=== PATIENT | female | born 2000 | race Caucasian/White ===

== ENCOUNTER 2021-11-11 11:48 | Outpatient (REF) | payer MEDICAID, SELFPAY ==
--- NOTE | 2021-11-11 16:11 | MHC.AU.AEV ---
Adult Audiological Evaluation Date of Visit: 11/11/21 Reason for Appointment: Audiological evaluation due to concern for decreased hearing. Nahomy notes that she is often asking for repetition, her mom gets frustrated that she never hears her, and she has to turn the volume up on the TV. She notes that she does have some ringing, which she notices almost daily for a few minutes at a time, and more often when she is in quiet environments. She notes that she feels she has an attention deficit as well and even if she is trying to pay attention and focus she doesn't always follow what is being said. She noted difficulties understanding speech in background noise . Does patient feel they have a hearing loss?: Yes If Yes, Which Ear?: Both Ears When Was Hearing Difficulty First Noticed?: a long time, but getting worse over the past year Has hearing been tested previously?: No Hearing Handicap Inventory Does a hearing problem cause you to feel embarrassed when meeting new people?: Yes Does a hearing problem cause you to feel frustrated when talking to members of your family?: Yes Do you have difficulty when someone speaks in a whisper?: Yes Do you feel handicapped by a hearing problem?: Yes Does a hearing problem cause you difficulty when visiting friends, relatives, or neighbors?: Yes Does a hearing problem cause you to attend sabianism service services less often than you would like?: Yes Does a hearing problem cause you to have arguments with family members?: Yes Does a hearing problem cause you difficulty when listening to TV or radio?: Yes Do you feel that any difficult with your hearing limits or hampers your personal or social life?: Yes Does a hearing problem cause you difficulty when in a restaurants with relatives or friends?: Yes HHIE SCORE: 40 Based on HHIE score, patient has: Severe perceived hearing handicap Ear History: Ear Infections in Childhood: Patient reports she had a bad infection in the left at age 5 History of Ear Wax Buildup: Both Ears Bothersome Tinnitus/Ringing/Noises in Ears: Right Ear Medical History: Medical History: Dizziness or Unsteadiness, Headache, Migraines Allergies: NKA Medication List: Lexapro, Naproxen (PRN during menstrual cycle), Vitamin D Otoscopy: Right Ear: Unremarkable Left Ear: Unremarkable Tympanometry: Tympanometry performed due to: To assess integrity of the middle ear system Right Ear: Normal Middle Ear System (Type A) Left Ear: Normal Middle Ear System (Type A) Otoacoustic Emissions Frequency Range Used: 1.6-8 kHz Right Ear Results: Present Emissions Analysis: Present emissions suggest normal cochlear function. Rules out peripheral hearing loss greater than a mild degree. Left Ear Results: Present Emissions Analysis: Present emissions suggest normal cochlear function. Rules out peripheral hearing loss greater than a mild degree. Hearing Evaluation: Transducer(s) Used: Insert Earphones, Bone Conduction Method: Conventional Audiometry Stimuli Used: Pure Tones Note: Initial responses were inconsistent and there was poor OCCUPATIONAL THERAPY ASSIST/SRT agreement. Final thresholds obtained using ascending presentation and responses fell within the normal range. Right Ear: Description of Hearing: Hearing in the normal range from 250-8000 Hz. Left Ear: Description of Hearing: Hearing in the normal range from 250-8000 Hz. Speech Recognition Threshold (SRT): Method Used: Monitored Live Voice Stimuli Used: Spondee Words Right Ear: 10 dBHL Left Ear: 5 dBHL Word Discrimination: Method: Recorded Lists Word Lists Used:: NU-6 Right Ear: 100% at 50 dBHL Left Ear: 100% at 45 dBHL QuickSIN: 7 dB SNR loss when presented at 55 dBHL binaurally, indicating mild [id number] understanding deficits. Interpretation of Results: Today's evaluation indicates normal peripheral hearing sensitivity, normal cochlear function, and normal middle-ear function. [id number] performance suggests a possible auditory processing deficit, which can also be impacted by attention deficits. Recommendations: No further audiological action is indicated at this time. Discussed tips and strategies for improved communication. Advised to return if changes are noted or new concerns arise. Diagnosis: Primary Diagnosis: H93.293 Abnormal Auditory Perception Services Performed: Pure Tone- Air (CPT 96833), Speech Audiometry Threshold, with Speech Recognition (CPT 87416), Diagnostic Otoacoustic Emissions (CPT 66574, 26+TC), Tympanometry (CPT 61530), Unlisted Otorhinolaryngological Service or Procedure (CPT 87381) Signature: Provider: Adithya Hernandez, CCC-A
== END 2021-11-11 11:49 | disposition home or self-care (01) ==
LOC: HO.SH 11:48
PROVIDERS: Visit Provider Nurse Practitioner Family
DX: Z01.118 Encounter for examination of ears and hearing with other abnormal findings (principal); H93.293 Other abnormal auditory perceptions, bilateral
CPT/HCPCS: 92552; 92556; 92567; 92588; 92700

== ENCOUNTER 2022-04-21 17:00 | Emergency (ER) | payer OTHER, SELFPAY ==
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
[2022-04-21 18:22] VITALS: BP 139/88; PULSE 76; RESP 18; TEMP 36.6; O2SAT 99; BMI 51.5
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
[2022-04-21] MEDS: Acetaminophen 325 MG TABLET 975 MG PO (20:34)
[2022-04-21] MEDS: Ibuprofen 600 MG TABLET PO (20:34)
== END 2022-04-21 20:50 | disposition home or self-care (01) ==
PROVIDERS: Emergency Provider Emergency Medicine Emergency Medical Services
DX: S43.401A Unspecified sprain of right shoulder joint, initial encounter (principal); V43.52XA Car driver injured in collision with other type car in traffic accident, initial encounter; Y93.89 Activity, other specified; Y92.414 Local residential or business street as the place of occurrence of the external cause; Y99.8 Other external cause status
CPT/HCPCS: 73030; 73060; 73090; 99283

== ENCOUNTER → 2022-05-08 13:06 | Outpatient (RCR) | payer OTHER, SELFPAY ==
[2020-06-09 11:17] LABS: COVID-19 Test Negative (Negative); IDNOW Serial# 55D5AD1C
[2020-06-16 11:13] LABS: COVID-19 Test Negative (Negative); IDNOW Serial# 55D5AD1C
[2020-06-23 11:11] LABS: COVID-19 Test Negative (Negative)
[2020-06-24 06:45] LABS: IDNOW Serial# 55D5AD1C
[2020-07-02 14:28] LABS: COVID-19 Test Negative (Negative); IDNOW Serial# 55D5AD1C
== END | disposition home or self-care (01) ==
LOC: HO.EMPCOV 06-16 10:48
PROVIDERS: Visit Provider Internal Medicine
DX: Z20.828 Contact with and (suspected) exposure to other viral communicable diseases (principal)
CPT/HCPCS: 87635; C9803

== ENCOUNTER 2022-12-13 21:22 | Emergency (ER) | payer MEDICAID, SELFPAY ==
--- NOTE | ~2022-12-13 | US_ITS ---
EXAMINATION: US ABDOMEN LIMITED CLINICAL INFORMATION: Right upper quadrant/epigastric pain. COMPARISON: None available. TECHNIQUE: Real-time imaging of the right upper quadrant abdominal viscera. FINDINGS: PANCREAS: The pancreas could not be evaluated as it was obscured by bowel gas. LIVER: The liver is normal in size. The liver contour is normal. Parenchymal echogenicity is normal. No focal hepatic lesion. There is no intrahepatic biliary duct dilatation seen. GALLBLADDER: The gallbladder is physiologically distended without evidence of stones, sludge, polyps, wall thickening or pericholecystic fluid. COMMON BILE DUCT: Normal in caliber measuring 0.3 cm in diameter. RIGHT KIDNEY: No hydronephrosis. No renal calculi or focal parenchymal lesions. The kidney measures 9.4 cm in maximum dimension. FREE FLUID: None. US/US abdomen limited IMPRESSION: No abnormality is seen. The pancreas could not be evaluated.
--- NOTE | ~2022-12-13 | US_ITS ---
EXAMINATION: US OBSTETRICAL ULTRASOUND CLINICAL INFORMATION: Abdominal pain COMPARISON: None available. LMP: 11/12/2022. Gestational age by maternal dates is 4 weeks 3 days. Estimated date of delivery by maternal dates is 08/19/2023. TECHNIQUE: Both transabdominal and endovaginal scanning was performed. FINDINGS: Uterus appears unremarkable. No gestational sac is seen. The endometrium is thickened at 2.1 cm. There may be trace fluid seen within the endometrium. The right ovary measures 3.5 x 2.4 x 2.3 cm and contains a 1.5 cm corpus luteal cyst. Left ovary measures 2.8 x 1.5 x 3.1 cm and appears normal. Small amount of free fluid is present in the cul-de-sac. US/US OB pelvic and transvaginal IMPRESSION: No intrauterine is identified at this time. Correlation with beta hCG levels is recommended, as nonvisualization of a gestational sac could be due to an early stage of . Alternatively, lack of an intrauterine gestational sac may also be seen with missed or ectopic , although no adnexal mass is seen to strongly suggest ectopic . Short-term sonographic follow-up and serial beta hCG levels are recommended to assess for development of an intrauterine gestational sac.
[2022-12-13 21:31] VITALS: BP 117/73; PULSE 90; RESP 16; TEMP 36.8; O2SAT 98; BMI 348.2
[2022-12-13 22:10] LABS: MANUAL DIFF FLAG NO
[2022-12-13 22:11] LABS: Basophils Percent Auto 0.2 % (0-2); Eosinophils Absolute Auto 0.1 X10*3/uL (0.0-0.4); Eosinophils Percent Auto 0.9 % (0-4); Hematocrit 37.8 % (37.0-47.0); Hemoglobin 12.2 g/dl (12.0-16.0); Imm Gran Abs Auto 0.04 X10*3/uL (0.00-0.03); Imm Gran Pct Auto 0.3 % (0.0-0.4); Lymphocytes Absolute Auto 2.2 X10*3/uL (1.2-4.9); Lymphocytes Percent Auto 17.4 % (20-40); Mean Corpuscular HGB Conc 32.3 g/dl (31.0-35.0); Mean Corpuscular Hemoglobin 25.3 pg (27.0-33.0); Mean Corpuscular Volume 78.4 fL (80.0-98.0); Mean Platelet Volume 10.7 fL (9.4-12.3); Monocytes Absolute Auto 0.8 X10*3/uL (0.1-1.2); Monocytes Percent Auto 6.5 % (2-11); Neutrophils Absolute Auto 9.5 x10*3/uL (2.0-8.3); Neutrophils Percent Auto 74.7 % (45-73); Platelet Count 316 X10*3/uL (160-400); Red Blood Count 4.82 X10*6/uL (4.20-5.50); Red Cell Distribution Width 15.1 % (11.0-16.0); White Blood Count 12.7 X10*3/uL (4.8-10.8)
[2022-12-13 22:12] LABS: Appearance Urine Clear; Color Urine Dark Yellow; Glucose Urine UA Negative (Negative); Leukocyte Esterase Urine Negative (Negative); Nitrite Urine Negative (Negative); PH 5.5 (5.0-9.0); Specific Gravity - Urine >= 1.030 (1.005-1.025); UMIC TRIGGER UACC YES; Urine Blood Negative (Negative); Urine Ketones Trace mg/dL (Negative); Urine Protein 30 (1+) mg/dL (Neg-Trace)
[2022-12-13 22:17] LABS: Bacteria Urine Trace (None Seen); RBC Urine 0-2 /HPF (0-2); WBC Urine 0-5 /HPF (0-5)
[2022-12-13 22:28] VITALS: BP 102/61; PULSE 78; RESP 18; TEMP 36.4; O2SAT 97
--- NOTE | 2022-12-13 22:28 | ED.ABDPAIN ---
HPI - Abdominal Pain General Chief Complaint: Abdominal Pain Stated Complaint: preg, sharp abd pain Time Seen by Provider: 12/13/22 21:43 Source: patient Mode of arrival: ambulatory History of Present Illness HPI narrative: 22-year-old female who presents with onset of right upper quadrant/epigastric, sharp pain since this morning and had 2 episodes of nausea and vomiting the last of which occurred at approximately 10:00 o'clock this morning, patient has been able tolerate liquids but otherwise has had a decrease in appetite. She denies any radiation of the discomfort, denies any pelvic pain or cramping, denies any dysuria or vaginal bleeding but states that her LMP was mid October and that she had to positive home test today. She denies any fevers or chills. Related Data Previous Rx's Medication Instructions Recorded pyridoxine (vitamin B6) 25 mg 25 mg PO TID #60 tabs 12/14/22 tablet Allergies Allergy/AdvReac Type Severity Reaction Status Date / Time No Known Allergies Allergy Verified 04/21/22 18:26 [No Known Allergies*] Review of Systems Review of Systems Pertinent positives and negatives as stated in HPI PMFSH Past Medical History Source: nursing notes reviewed Social History Social History Alcohol intake: current Alcohol intake frequency: holidays/special occasions only Smoked in Last 30 Days: No Use of substances other than those prescribed or required for medical reasons: Yes Substance Use Type: Marijuana Substance Use Frequency: Socially Advance Directives: No Advance Directives Information Provided: Yes Patient : Yes Physical Exam ED Vital Signs: Vital Signs - 24 hr 12/13/22 21:31 12/13/22 22:28 Temperature 98.3 F 97.5 F Pulse Rate 90 78 Respiratory Rate 16 18 Blood Pressure 117/73 102/61 Pulse Oximetry 98 97 Oxygen Delivery Method Room Air Room Air BMI result Body Mass Index 348.2 VITAL SIGNS: Reviewed. GENERAL: Elevated BMI, Well developed, well nourished, in no acute distress. HEAD: Normocephalic/atraumatic EYES: PERRLA, EOMI EARS: Ext canals without abnormality NOSE: Nares patent bilateral OROPHARYNX: no oral lesions noted, posterior pharynx clear NECK: Supple, no adenopathy LUNGS: Normal breath sounds. No adventitious sounds or accessory muscle use. SpO2<98> CARDIOVASCULAR: Regular rate and rhythm without noted murmurs ABDOMEN: Soft, epigastric/right upper quadrant pain, Crawford's positive, non-distended with bowel sounds. MUSCULOSKELETAL: No tenderness, deformities, or effusions noted on gross inspection. EXTREMITIES: No cyanosis, clubbing or edema. SKIN: Inspection of the skin reveals no rashes NEUROLOGIC: Alert and oriented x 4. Strength and sensation to light touch were grossly intact x 4. Medical Decision Making Medical Decision Making MDM Narrative: 22-year-old female with suspicion for gallbladder etiology, does not seem consistent with a gastritis and low clinical suspicion for pancreatitis. Although patient reports she has had 2 positive home tests she is not experiencing any lower pelvic pain/cramping and neither she experiencing any vaginal discharge or bleeding. In addition, no history your findings to suggest a renal colic. - Labs, UA, hcg, US ABD LIMITED Review of all investigations and my interpretation is that patient has related leukocytosis, imaging studies negative for any acute findings to suggest gallbladder pathology, hCG-128, ultrasound does not demonstrate IUP but given the likely early nature of the this is not surprising and patient has no lower abdominal or pelvic discomfort. She also denies any vaginal bleeding. 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 Differential Diagnosis Please see the discussion above Lab Data Please see the discussion above 12/13/22 22:05 12/13/22 22:05 Labs: Lab Results 12/13/22 12/13/22 12/13/22 Range/Units 22:05 22:05 22:05 WBC 12.7 H (4.8-10.8) X10*3/uL RBC 4.82 (4.20-5.50) X10*6/uL Hgb 12.2 (12.0-16.0) g/dl Hct 37.8 (37.0-47.0) % MCV 78.4 L (80.0-98.0) fL MCH 25.3 L (27.0-33.0) pg MCHC 32.3 (31.0-35.0) g/dl RDW 15.1 (11.0-16.0) % Plt Count 316 (160-400) X10*3/uL MPV 10.7 (9.4-12.3) fL Immature Gran % (Auto) 0.3 (0.0-0.4) % Neut % (Auto) 74.7 H (45-73) % Lymph % (Auto) 17.4 L (20-40) % [place] % (Auto) 6.5 (2-11) % Eos % (Auto) 0.9 (0-4) % Baso % (Auto) 0.2 (0-2) % Lymph # (Auto) 2.2 (1.2-4.9) X10*3/uL [place] # (Auto) 0.8 (0.1-1.2) X10*3/uL Eos # (Auto) 0.1 (0.0-0.4) X10*3/uL Baso # (Auto) 0.0 (0.0-0.2) X10*3/uL Abs Immat Gran (auto) 0.04 H (0.00-0.03) X10*3/uL Absolute Neuts (auto) 9.5 H (2.0-8.3) x10*3/uL Absolute Nucleated RBC 0.000 (0.0-0.012) X10*3/uL Nucleated RBC % (auto) 0.0 (0.0-0.2) /100WBC Sodium 139 (135-145) mmol/L Potassium 4.1 (3.3-5.1) mmol/L Chloride 109 H (96-108) mmol/L Carbon Dioxide 23 (22-29) mmol/L Anion Gap 11 L (12-20) BUN 10 (9-16) mg/dL Creatinine 0.85 (0.5-1.4) mg/dL Estim Creat Clear Calc 48.5 Estimated GFR > 60 Random Glucose 104 (60-115) mg/dL Calcium 9.2 (8.4-10.2) mg/dL Total Bilirubin 0.6 (0.0-1.0) mg/dL AST 15 (5-31) U/L ALT 26 (0-31) U/L Alkaline Phosphatase 68 (39-117) U/L Total Protein 7.4 (6.5-8.0) g/dL Albumin 4.0 (3.5-5.0) g/dL Beta HCG, Quant 128 mIU/mL Urine Color Dark Yellow Urine Appearance Clear Urine pH 5.5 (5.0-9.0) Ur Specific [place] >= 1.030 H (1.005-1.025) Urine Protein 30 (1+) H (Neg-Trace) mg/dL Urine Glucose (UA) Negative (Negative) mg/dL Urine Ketones Trace (Negative) mg/dL Urine Blood Negative (Negative) Urine Nitrite Negative (Negative) Ur Leukocyte Esterase Negative (Negative) Urine RBC 0-2 (0-2) /HPF Urine WBC 0-5 (0-5) /HPF Ur Squamous Epith Cells 6-10 (0-2) /HPF Urine Bacteria Trace (None Seen) Hyaline Casts 3-5 (0-2) /LPF Radiology Impression Radiologist Impression: My interpretation is in agreement with radiology's impression External Record Review External record reviewed: Prior outpatient labs Discharge Plan Discharge Clinical Impression: , Epigastric discomfort Patient Disposition: Home, Self-Care Instructions: (ED), Epigastric Pain (ED) Additional Instructions: 1. Please initiate vitamins, increase the amount of water intake that you are taking, I a.m. prescribing you with antinausea medication for suspected related nausea and vomiting. 2. You need to follow-up with an retail shift supervisor for repeat levels as well as repeat ultrasound. Please return to the emergency room if you develop any pelvic discomfort, vaginal bleeding. Prescriptions: New pyridoxine (vitamin B6) 25 mg tablet 25 mg PO TID Qty: 60 0RF Referrals: [facility] [Primary Care Provider] - Darryl Stephenson MD [Physician] - (Early )
[2022-12-13 22:35] LABS: Alanine Aminotransferase 26 U/L (0-31); Alkaline Phosphatase 68 U/L (39-117); Anion Gap 11 (12-20); Aspartate Amino Transferase 15 U/L (5-31); Bilirubin Total 0.6 mg/dL (0.0-1.0); Blood Urea Nitrogen 10 mg/dL (9-16); Calcium 9.2 mg/dL (8.4-10.2); Carbon Dioxide 23 mmol/L (22-29); Chloride 109 mmol/L (96-108); Creatinine Clr Calc Pharmacy 48.5; Estimated Glomerular Filt Rate > 60; Glucose Random 104 mg/dL (60-115); HCG Quantitative 128 mIU/mL; Potassium 4.1 mmol/L (3.3-5.1); Sodium 139 mmol/L (135-145); Total Protein 7.4 g/dL (6.5-8.0)
--- NOTE | 2022-12-13 23:07 | PC.NURSE ---
Ultrasound at bedside for examination.
== END 2022-12-14 00:23 | disposition home or self-care (01) ==
PROVIDERS: Emergency Provider Student in an Organized Health Care Education/Training Program
DX: O26.891 Other specified pregnancy related conditions, first trimester (principal); R10.13 Epigastric pain; R11.2 Nausea with vomiting, unspecified; Z3A.01 Less than 8 weeks gestation of pregnancy
CPT/HCPCS: 36415; 76705; 76801; 76817; 80053; 81001; 84702; 85025; 99284

== ENCOUNTER 2023-01-31 15:29 | Emergency (ER) | payer MEDICAID, SELFPAY ==
--- NOTE | ~2023-01-31 | US_ITS ---
EXAMINATION: US ABDOMEN LIMITED CLINICAL INFORMATION: Right upper quadrant pain. COMPARISON: None available. TECHNIQUE: Real-time imaging of the right upper quadrant abdominal viscera. FINDINGS: PANCREAS: The pancreas appears unremarkable, without masses or ductal dilatation, with the exception of the tail which is obscured by bowel gas. LIVER: The liver is normal in size. The liver contour is normal. Parenchymal echogenicity is normal. No focal hepatic lesion. There is no intrahepatic biliary duct dilatation seen. GALLBLADDER: Normal. The gallbladder is physiologically distended without evidence of stones, sludge, polyps, wall thickening or pericholecystic fluid. COMMON BILE DUCT: Normal in caliber measuring 0.2 cm in diameter. RIGHT KIDNEY: No hydronephrosis. No renal calculi or focal parenchymal lesions. The kidney measures 10.0 cm in maximum dimension. FREE FLUID: None. US/US abdomen limited IMPRESSION: No significant abnormality is seen. A cause for the patient's right upper quadrant pain has not been found.
[2023-01-31 15:38] VITALS: BP 148/68; PULSE 96; RESP 16; TEMP 36.8; O2SAT 98; BMI 54.7
--- NOTE | 2023-01-31 15:41 | ED.ABDPAIN ---
HPI - Abdominal Pain General Chief Complaint: Abdominal Pain Stated Complaint: 11 weeks preg./cramps Time Seen by Provider: 01/31/23 20:46 Source: patient, RN notes reviewed and old records reviewed Mode of arrival: ambulatory Limitations: no limitations History of Present Illness HPI narrative: 22-year-old female with past medical history significant for obesity presents for evaluation of abdominal pain Patient is , approximately 11 weeks She reports mid upper to right upper abdominal pain Her symptoms started 2 days ago. She has associated nausea and vomiting Denies any history abdominal surgeries. The patient is well-appearing [facility] Patient denies any lower abdominal pain, vaginal bleeding or discharge Related Data Previous Rx's Medication Instructions Recorded pyridoxine (vitamin B6) 25 mg 25 mg PO TID #60 tabs 12/14/22 tablet Allergies Allergy/AdvReac Type Severity Reaction Status Date / Time No Known Allergies Allergy Verified 01/31/23 15:38 [No Known Allergies*] Review of Systems Constitutional: Reports as per HPI, Denies chills, Denies fatigue, Denies fever(s) and Denies headache(s) Denies headache(s) Cardiovascular: Denies chest pain and Denies dyspnea Respiratory: Denies cough and Denies dyspnea Gastrointestinal: Reports abdominal pain, Denies constipation, Reports nausea and Reports vomiting Genitourinary: Denies dysuria Denies headache(s) and Denies focal weakness Endocrine: Denies fatigue PMFSH Social History Social History Alcohol intake: never Smoked in Last 30 Days: No Use of substances other than those prescribed or required for medical reasons: No Substance Use Type: Marijuana Advance Directives: No Advance Directives Information Provided: No Physical Exam ED Vital Signs: Vital Signs - 24 hr 01/31/23 15:38 01/31/23 20:28 Temperature 98.2 F Pulse Rate 96 95 Respiratory Rate 16 18 Blood Pressure 148/68 H 135/75 Pulse Oximetry 98 92 Oxygen Delivery Method Room Air Room Air BMI result Body Mass Index 54.7 Const General: healthy appearing, comfortable, no acute distress, alert and awake Nutritional Appearance: well nourished Orientation/consciousness: patient oriented x3 HENMT Head: Yes normocephalic and Yes atraumatic Throat: Yes posterior oropharynx normal Eyes Eyelids: Yes eyelids normal Conjunctivae: conjunctivae normal Sclerae: sclerae normal Corneas: corneas normal Pupils: Equal, round and reactive pupils present EOM: EOMs intact bilaterally Neck Neck: Yes full ROM Resp Effort & Inspection: normal respiratory effort, able to speak in complete sentences and not labored GI Inspection: No distended Palpation (GI): Soft to palpation, not firm, Tenderness to palpation present (GI) in the epigastrum and in the RUQ; not in the LLQ, not in the RLQ and not suprapubicly, no guarding and not rigid Skin General skin exam: no rashes or lesions noted and elasticity normal Neuro General: patient oriented x3 Cranial nerves: Yes Equal, round and reactive pupils present and Yes Bilaterally intact EOM present Cognition (Neuro): normal cognition Extrem Other: Moving all extremities well without any obvious deformities Course Course Course Narrative: RME - 22 yo currently 11 weeks LMP 11/12 (follows w/ OB @ [facility]) who presents to the ER for evaluation of right sided abdominal pain, nausea and vomiting. Right sided abdominal pain and epigastric pain that has been worsening for the last 2 days. Hx the same with negative RUQ U/S in November. Symptoms now worse and exacerbated when eating. No vaginal bleeding. Plan: labs and RUQ U/S Medical Decision Making Medical Decision Making [facility] Narrative: 22-year-old female presents for evaluation of upper abdominal pain. Her symptoms are most consistent with GERD versus gastroenteritis and her labs are reassuring. Gallbladder ultrasound negative. heart tones normal at 136. Patient has no lower abdominal pain, vaginal bleeding or discharge. Wound to the patient's discomfort and she can be discharged to follow-up edema Differential Diagnosis GERD Gastroenteritis Peptic ulcer disease Cholelithiasis Acute cholecystitis Lab Data [facility] Lab Attestation statement: I reviewed the patient's lab results. Patient has no leukocytosis with a white count of 10.8, mild anemia with a hemoglobin 11.6 and hematocrit 36.4. Normal platelets at 242. No significant electrolyte abnormalities. 01/31/23 16:05 01/31/23 16:05 Labs: Lab Results 01/31/23 01/31/23 01/31/23 Range/Units 16:05 16:05 20:31 WBC 10.8 (4.8-10.8) X10*3/uL RBC 4.46 (4.20-5.50) X10*6/uL Hgb 11.6 L (12.0-16.0) g/dl Hct 36.4 L (37.0-47.0) % MCV 81.6 (80.0-98.0) fL MCH 26.0 L (27.0-33.0) pg MCHC 31.9 (31.0-35.0) g/dl RDW 15.6 (11.0-16.0) % Plt Count 242 (160-400) X10*3/uL MPV 10.7 (9.4-12.3) fL Immature Gran % (Auto) 0.4 (0.0-0.4) % Neut % (Auto) 73.4 H (45-73) % Lymph % (Auto) 20.4 (20-40) % [place] % (Auto) 4.3 (2-11) % Eos % (Auto) 1.3 (0-4) % Baso % (Auto) 0.2 (0-2) % Lymph # (Auto) 2.2 (1.2-4.9) X10*3/uL Kern # (Auto) 0.5 (0.1-1.2) X10*3/uL Eos # (Auto) 0.1 (0.0-0.4) X10*3/uL Baso # (Auto) 0.0 (0.0-0.2) X10*3/uL Abs Immat Gran (auto) 0.04 H (0.00-0.03) X10*3/uL Absolute Neuts (auto) 7.9 (2.0-8.3) x10*3/uL Absolute Nucleated RBC 0.000 (0.0-0.012) X10*3/uL Nucleated RBC % (auto) 0.0 (0.0-0.2) /100WBC Sodium 137 (135-145) mmol/L Potassium 4.4 (3.3-5.1) mmol/L Chloride 106 (96-108) mmol/L Carbon Dioxide 20 L (22-29) mmol/L Anion Gap 15 (12-20) BUN 8 L (9-16) mg/dL Creatinine 0.73 (0.5-1.4) mg/dL Estim Creat Clear Calc 162.2 Estimated GFR > 60 Random Glucose 122 H (60-115) mg/dL Calcium 9.1 (8.4-10.2) mg/dL Magnesium 1.7 (1.6-2.6) mg/dL Total Bilirubin 0.4 (0.0-1.0) mg/dL Direct Bilirubin 0.2 (0.0-0.5) mg/dL AST 12 (5-31) U/L ALT 17 (0-31) U/L Alkaline Phosphatase 62 (39-117) U/L Total Protein 6.8 (6.5-8.0) g/dL Albumin 3.4 L (3.5-5.0) g/dL Urine Color Yellow Urine Appearance Clear Urine pH 7.0 (5.0-9.0) Ur Specific [place] 1.015 (1.005-1.025) Urine Protein Negative (Neg-Trace) mg/dL Urine Glucose (UA) Negative (Negative) mg/dL Urine Ketones Negative (Negative) mg/dL Urine Blood Negative (Negative) Urine Nitrite Negative (Negative) Ur Leukocyte Esterase Negative (Negative) Radiology Impression Discussion of test interpretation with radiology: I have reviewed the radiologist's reading. Radiologist Impression: No acute findings of the right upper quadrant Medications Administered Discontinued Medications Generic Name Dose Route Start Last Admin Trade Name Freq PRN Reason Stop Dose Admin Lidocaine/Diphenhydr/Alum/Mg/Simeth 10 ml 01/31/23 21:07 01/31/23 21:26 Mag&Al/Sim/Diphenhyd/Lidocaine 10 Ml Oral.Susp PO 01/31/23 21:08 10 ml ONCE ONE Administration Protocol Sucralfate 1 gm 01/31/23 21:07 01/31/23 21:26 Sucralfate Oral Suspension 1 Gm/10 Ml Oral.Susp PO 01/31/23 21:08 1 gm ONCE ONE Administration Discharge Plan Discharge Clinical Impression: Abdominal pain Patient Disposition: Home, Self-Care Instructions: Gastroesophageal Reflux Disease (ED) Additional Instructions: Your pain is most likely related to GERD which may be worsened due to your Avoid spicy, greasy foods to help with the symptoms Your baby's heart rate is 136 which is normal Return for new or worsening symptoms Call your OBGYN as soon as possible to schedule follow-up Prescriptions: No Action pyridoxine (vitamin B6) 25 mg tablet 25 mg PO TID Qty: 60 0RF
[2023-01-31 16:15] LABS: MANUAL DIFF FLAG NO
[2023-01-31 16:29] LABS: Basophils Percent Auto 0.2 % (0-2); Eosinophils Absolute Auto 0.1 X10*3/uL (0.0-0.4); Eosinophils Percent Auto 1.3 % (0-4); Hematocrit 36.4 % (37.0-47.0); Hemoglobin 11.6 g/dl (12.0-16.0); Imm Gran Abs Auto 0.04 X10*3/uL (0.00-0.03); Imm Gran Pct Auto 0.4 % (0.0-0.4); Lymphocytes Absolute Auto 2.2 X10*3/uL (1.2-4.9); Lymphocytes Percent Auto 20.4 % (20-40); Mean Corpuscular HGB Conc 31.9 g/dl (31.0-35.0); Mean Corpuscular Volume 81.6 fL (80.0-98.0); Mean Platelet Volume 10.7 fL (9.4-12.3); Monocytes Absolute Auto 0.5 X10*3/uL (0.1-1.2); Monocytes Percent Auto 4.3 % (2-11); Neutrophils Absolute Auto 7.9 x10*3/uL (2.0-8.3); Neutrophils Percent Auto 73.4 % (45-73); Platelet Count 242 X10*3/uL (160-400); Red Blood Count 4.46 X10*6/uL (4.20-5.50); Red Cell Distribution Width 15.6 % (11.0-16.0); White Blood Count 10.8 X10*3/uL (4.8-10.8)
[2023-01-31 16:38] LABS: Alanine Aminotransferase 17 U/L (0-31); Albumin Level 3.4 g/dL (3.5-5.0); Alkaline Phosphatase 62 U/L (39-117); Anion Gap 15 (12-20); Aspartate Amino Transferase 12 U/L (5-31); Bilirubin Direct 0.2 mg/dL (0.0-0.5); Bilirubin Total 0.4 mg/dL (0.0-1.0); Blood Urea Nitrogen 8 mg/dL (9-16); Calcium 9.1 mg/dL (8.4-10.2); Carbon Dioxide 20 mmol/L (22-29); Chloride 106 mmol/L (96-108); Creatinine Clr Calc Pharmacy 162.2; Estimated Glomerular Filt Rate > 60; Glucose Random 122 mg/dL (60-115); Magnesium 1.7 mg/dL (1.6-2.6); Potassium 4.4 mmol/L (3.3-5.1); Sodium 137 mmol/L (135-145); Total Protein 6.8 g/dL (6.5-8.0)
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
[2023-01-31 20:28] VITALS: BP 135/75; PULSE 95; RESP 18; O2SAT 92
[2023-01-31 20:57] LABS: Appearance Urine Clear; Color Urine Yellow; Glucose Urine UA Negative (Negative); Leukocyte Esterase Urine Negative (Negative); Nitrite Urine Negative (Negative); Specific Gravity - Urine 1.015 (1.005-1.025); Urine Blood Negative (Negative); Urine Ketones Negative (Negative); Urine Protein Negative (Neg-Trace)
[2023-01-31] MEDS: Sucralfate Oral Suspension 1 GM/10 ML ORAL.SUSP PO (21:26)
[2023-01-31] MEDS: Mag&Al/Sim/Diphenhyd/Lidocaine 10 ML ORAL.SUSP PO (21:26)
== END 2023-01-31 22:53 | disposition home or self-care (01) ==
PROVIDERS: Physician Assistant; Emergency Provider Emergency Medicine
DX: O26.891 Other specified pregnancy related conditions, first trimester (principal); R10.10 Upper abdominal pain, unspecified; Z3A.11 11 weeks gestation of pregnancy
CPT/HCPCS: 36415; 76705; 80048; 80076; 81003; 83735; 84702; 85025; 99284

== ENCOUNTER 2023-02-15 06:22 | Emergency (ER) | payer MEDICAID, SELFPAY ==
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
[2023-02-15 06:38] VITALS: BP 131/55; PULSE 83; RESP 18; TEMP 36.9; O2SAT 96; BMI 55.8
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
[2023-02-15 08:26] VITALS: BP 124/76; PULSE 91; RESP 16; O2SAT 99
== END 2023-02-15 08:32 | disposition home or self-care (01) ==
PROVIDERS: Emergency Provider Emergency Medicine
DX: O26.91 Pregnancy related conditions, unspecified, first trimester (principal); Z3A.13 13 weeks gestation of pregnancy
CPT/HCPCS: 76801; 99284

== ENCOUNTER 2025-02-13 13:59 | Outpatient (REF) | payer MEDICAID, SELFPAY ==
--- OUTSIDE RECORDS SUMMARY | 2025-02-13 14:43 | XMS_ITS | Encounter Summary ---
Author Organization [employer] Address [address] [place] [address] [place] [address] Care Team Providers Care Accounts Receivable Collector Name Role Phone Halie Arriaza Primary Care Provider [phone] Rosanne Lange NP Primary Care Provider [phone] Encounter Details Date Type Department Care Team (Late Contact Info) Description 02/17/2023 [facility] Information Management [address] [place] [address] Halie Arriaza FNP [address] [place] [address] Social History Tobacco Use Types Packs/Day Years Used Date Smoking Tobacco: Never Smokeless Tobacco: Never Alcohol Use Standard Drinks/Week Comments Yes 0 (1 standard drink = 0.6 oz pur e alcohol) Occasionally Comments Unknown Sex and Gender Information Value Date Recorded Sex Assigned at Female 05/19/2022 10:20 AM EDT Legal Sex Female 10:20 AM EDT Gender Identity Other 05/19/2022 10:20 AM EDT Sexual Orientation Lesbian or [place] 05/19/2022 10 :20 AM EDT documented as of this encounter Plan of Treatment Upcoming Encounters Date Type Department Care Team (Late Contact Info) Description 05/12/2025 9:00 AM EDT Office Visit [facility] [address] [place] [address] Román, Rina, OD [address] [place] [address] documented as of this encounter Visit Diagnoses Not on filedocumented in this encounter Care Teams Accounts Receivable Collector Relationship Specialty Start Date End Date Halie Arriaza FNP [address] [place] [address] PCP - General Family Medicine 03/13/22 10/18/24 Rosanne Lange NP [address] [place] [address] PCP - General Family Medicine 02/13/25 documented as of this encounter
[2025-02-13 15:53] LABS: CT PCR Urine NOT DETECTED (Not Detect.); NG PCR Urine NOT DETECTED (Not Detect.)
== END 2025-02-13 14:00 | disposition home or self-care (01) ==
LOC: HO.HHCLNP 13:59
PROVIDERS: Visit Provider Nurse Practitioner Family
DX: Z00.00 Encounter for general adult medical examination without abnormal findings (principal)
CPT/HCPCS: 36415; 87491; 87591

== ENCOUNTER 2025-04-12 08:02 | Outpatient (REF) | payer MEDICAID, SELFPAY ==
--- OUTSIDE RECORDS SUMMARY | 2025-04-12 08:15 | XMS_ITS | Encounter Summary ---
Author Organization [employer] Address [address] [place] [address] [place] [address] Care Team Providers Care Director Of Consumer Affairs Name Role Phone Halie Arriaza Primary Care Provider [phone] Rosanne Lange NP Primary Care Provider [phone] Encounter Details Date Type Department Care Team (Late Contact Info) Description 02/17/2023 [facility] [employer] Information Management [address] [place] [address] Halie Arriaza FNP [address] [place], [place] [phone] Social History Tobacco Use Types Packs/Day Years [...] Department Care Team (Late Contact Info) Description 04/14/2025 11:15 AM EDT Office Visit [facility] [address] [place] [address] Rosanne Lange NP [address] [place] [address] 05/09/2025 1:00 PM EDT Procedure Visit [facility] [address] [place] [address] Rosanne Lange NP [address] [place] [address] 05/12/2025 9:00 AM EDT Office Visit [facility] [address] [place] [address] Rina France, OD [address] [place] [address] documented as of this encounter Visit Diagnoses Not on filedocumented in this encounter Care Teams Director Of Consumer Affairs Relationship Specialty Start Date End Date Halie Arriaza FNP [address] [place] [address] PCP - General Family Medicine 03/13/22 10/18/24 Rosanne Lange NP [address] [place] [address] PCP - General Family Medicine 02/13/25 documented as of this encounter
--- OUTSIDE RECORDS SUMMARY | 2025-04-12 08:16 | XMS_ITS | Encounter Summary ---
Author Organization [employer] Address [address] [place] [address] Care Team Providers Care Director Of Food And Beverage Services Name Role Phone Rosanne Lange NP Primary Care Provider [phone] Reason for Visit * Reason Onset Date Comments Prior Authorization 02/28/2025 Encounter Details Date Type Department Care Team ([facility] Contact Info) Description 02/28/2025 Telephone [facility] MEDICINE [address] [place] [address] Rosanne Lange NP [address] [place] [address] Prior Authorization Social History Tobacco Use Types Packs/Day Years Used Date Smoking Tobacco: Never Smokeless Tobacco: Never Alcohol Use Standard Drinks/Week Comments Yes 0 (1 standard drink = 0.6 oz pur e alcohol) Occasionally Depression Answer Date Recorded Patient Health Questionnaire-9 Score 6 02/13/2025 Patient Health Questionnaire-9 Score 6 02/13/2025 Last PHQ-9: Questionnaire Data Not on file 0 02/13/2025 Housing Stability Answer Date Recorded What is your housing situation today? I have fidencio hernandez 02/06/[address] you li ve. Do you have problems with any of the following? None of the above 02/06/2025 Food Insecurity Answer Date Recorded Within the past 12 months, y ou worried that your food would run out before you got money to buy more: Never True 02/06/2025 Within the past 12 months,th e food you bought just didn't last and you didn't have enough money to get more: Never True Transportation Answer Date Recorded In the past 12 months, has l ack of transportation kept you from medical appts, meetings, work or from getting things needed for daily living? No 02/06/2025 Utilities Answer Date Recorded In the past 12 months, has t he electric, gas, oil or water company threatened to shut off services in your home? No 02/06/2025 Depression Answer Date Recorded Patient Health Questionnaire-2 Score 2 02/13/2025 Internet Access Answer Date Recorded Internet Access Q1 Yes 02/06/2025 Internet Access Q2 Not on file 02/06/2025 Comments Unknown Sex and Gender Information Value Date Recorded Sex Assigned at Female 05/19/2022 10:20 AM EDT Legal Sex Female 10:20 AM EDT Gender Identity Other 05/19/2022 10:20 AM EDT Sexual Orientation Lesbian or Galeano 05/19/2022 10 :20 AM EDT documented as of this encounter Miscellaneous Notes * Telephone Encounter - Deanna Musa - 03/01/2025 11:22 AM EDT Per formulary, 90-day trial of Phentermine/Topiramate at max dose or documented contraindicationto said medications is required prior to use of GLP1. If pt has met these requirements, please addend note to support request for Trulicity. Thank you * Telephone Encounter - Haylie Hanley - 02/28/2025 3:12 PM EDT Tc from pt requesting PA for Dulaglutide (Trulicity) 0.75 MG/0.5ML solution auto-injector documented in this encounter Plan of Treatment Upcoming Encounters Date Type Department Care Team (Late st Contact Info) Description 04/14/2025 11:15 AM EDT Office Visit [facility] MEDICINE [address] [place] [address] Rosanne Lange NP [address] [place] [address] 05/09/2025 1:00 PM EDT Procedure Visit [facility] MEDICINE [address] [place] [address] Rosanne Lange NP [address] [place] [address] 05/12/2025 9:00 AM EDT Office Visit [facility] OPTOMETRY [address] [place] [address] RománRina gambino, OD [address] [place] [address] documented as of this encounter Visit Diagnoses Not on filedocumented in this encounter Additional Health Concerns Assessment Noted Time PHQ-9 Depression Total Score: 6 02/14/20 10:24 AM EDT documented as of this encounter Care Teams Director Of Food And Beverage Services Relationship Specialty Start Date End Date Rosanne Lange NP [address] [place] [address] PCP - General Family Medicine 02/13/25 documented as of this encounter
--- OUTSIDE RECORDS SUMMARY | 2025-04-12 08:16 | XMS_ITS | Encounter Summary ---
Author Organization [employer] Address [address] [place] [address] Care Team Providers Care Roast Master Name Role Phone Rosanne Lange NP Primary Care Provider Reason for Visit * Reason Onset Date Comments Medication Question 04/11/2025 Encounter Details Date Type Department Care Team ([facility] Contact Info) Description 04/11/2025 Telephone [facility] MEDICINE [address] [place] [address] Rosanne Lange NP [address] [place] [address] Medication Question Social History Tobacco Use Types Packs/Day Years [...] encounter Miscellaneous Notes * Telephone Encounter - Bernard Yin - 04/11/2025 3:44 PM EDT Pt is requesting to discuss medication for depression on upcoming visit with PCP on 04-14-2025, pt declined triage pt currently don't have suicidal thoughts. Any questions please contact pt at [phone] documented in this encounter Plan of Treatment Upcoming Encounters Date Type Department Care Team ([facility] st Contact Info) Description 04/14/2025 11:15 AM EDT Office Visit [facility] MEDICINE [address] [place] [address] Rosanne Lange NP [address] [place] [address] 05/09/2025 1:00 PM EDT Procedure Visit [facility] MEDICINE [address] [place] [address] Rosanne Lange, JEFF [address] [place] [address] 05/12/2025 9:00 AM EDT Office Visit [facility] OPTOMETRY [address] [place] [address] Rina France OD [address] [place] [address] documented as of this encounter Visit Diagnoses Not on filedocumented in this encounter Additional Health Concerns Assessment Noted Time PHQ-9 Depression Total Score: 6 02/14/20 25 10:24 AM EDT documented as of this encounter Care Teams Roast Master Relationship Specialty Start Date End Date Rosanne Lange NP [address] [place] [address] PCP - General Family Medicine 02/13/25 documented as of this encounter
--- OUTSIDE RECORDS SUMMARY | 2025-04-12 08:16 | XMS_ITS | Clinical Summary ---
Author Organization [employer] Address [address] [place] [address] Care Team Providers Care Sprinkler Driver Name Role Phone Rosanne Lange NP Primary Care Provider [phone] Allergies No known active allergies Medications Dulaglutide (Trulicity) 0.75 MG/0.5ML solution auto-injectorInd ications:Morbid obesity (CMS/HCC) Inject 0.75 mg under the skin 1 (one) time per week for 28 days. 2 mL 02/13/2025 Active Active Problems Problem Noted Date Diagnosed Date Dietary counseling 02/13/2025 Assessment & Plan (02/13/2025 10:30 AM EDT): Dietary Recommendations: Fruits, vegetables, whole grains, protein foods, and fat-free or low-fat dairy products are healthy choices. Eat different types of protein foods in your diet. This can include seafood, lean meats, poultry, beans, peas, lentils, nuts, seeds, soy products, and eggs. Limit foods and beverages higher in added sugars, saturated fat, and sodium. Exercise Recommendations: At least 150 minutes of moderate-intensity physical activity per week, or an equivalent combination of moderate- and vigorous-intensity activity Hx of gestational diabetes mellitus, not current ly 02/13/2025 Depressive disorder 02/12/2020 Assessment & Plan (02/13/2025 10:27 AM EDT): Stable in remission Assessment & Plan (11/26/2022 8:38 AM EDT): Continue following with therapist every other week Reports doing well overall, denies SI/HI/thoughts of self harm Previous med trials: lexapro, zoloft, lamictal. Not currently on medication and reports feeling well overall. (?) bipolar disorder listed in previous records Iron deficiency anemia 09/23/2017 Assessment & Plan (11/26/2022 8:36 AM EDT): Last H/H .9 in September 2021, ferritin 8 Denies excess menstruation Denies palpitations, lightheadedness, SOB, pallor, or other associated symptoms Not currently taking any supplements Repeat labs sent today, plan to send prescription for supplements if appropriate Vitamin D deficiency 06/19/2015 Obesity 11/05/2011 Assessment & Plan (02/13/2025 11:00 AM EDT): Hx noted benefit from trulicity, will resinstate Assessment & Plan (11/26/2022 8:33 AM EDT): Previously on Trulicity with noted improvement, interested in restarting No personal or fam hx of pancreatitis or medullary thyroid cancer Start Trulicity 0.75mg subcutaneous weekly. Reviewed med use and SE Initial weight: 130kg on 11/25/22 Encouraged to continue with healthy lifestyle interventions Encounters Date Type Department Care Team Description 04/11/2025 Telephone [facility] MEDICINE [address] [place] [phone] Rosanne Lange NP Medication Question 02/28/2025 Telephone [facility] [address] [place] [address] Rosanne Lange NP Prior Authorization 02/23/[address] [address] Janet Del Castillo MA sep recall 02/13/2025 9:45 AM EDT Office Visit [address] [address] Rosanne Lange NP Depressive disorder (Primary Dx); Dietary counseling; Exercise counseling; Morbid obesity (CMS/HCC); Healthcare maintenance; Hx of gestational diabetes mellitus, not currently ; Class 3 severe obesity with body mass index (BMI) of 50.0 to 59.9 in adult, unspecified obesity type, unspecified whether serious comorbidity present 02/13/2025 Travel 02/10/2025 Telephone [facility] [address] [place], [place] [phone] Janet Del Castillo MA Chart Prep 02/06/2025 Patient Outreach [facility] [address] [place], [place] [id number] Rosanne Lange, JEFF Pre-visit Planning (SDOH negative, Tobacco screening negative. ) from Last 3 Months Immunizations Immunization Administration Dates Next Due DTaP 08/05/2005, 3,02/04/2002,10/27,2001 HPV 9-Valent 06/13/2015 HPV, Quadrivalent 06/13/2015,09/28/2013,09/25/19 13 Hep A, ped/adol, 3 dose 09/19/2010,10/17/2009 Hep B, Adolescent or Pediatric 3,10/12/2002,2001,08/14 Hib (HbOC) 04/25/2003,2001,2001 IPV 08/05/2005, 2,2001,08/14 Influenza injectable quadriv alent preservative free 07/28/2017 Influenza live intranasal qu adrivalent LIAV4 06/13/2015 Influenza, IIV3, injectable 07/28/2017 Influenza, Split (incl. aspen fied surface antigen) 09/28/2013,09/24/2012 Influenza, live, intranasal 06/13/2015 MMR 04/25/2003,06/22/2002 Meningococcal ACWY, unspecified 07/28/2017,09/24 Meningococcal MCV4P ACYW-135 07/28/2017,09/25/19 13 Moderna Covid-19 Vaccine 12+ 12/13/2020,11/16/19 21 Pneumococcal Conjugate PCV 7 06/22/2002,02/05/20 02,2001 Tdap 11/17/2024,09/24/2012 Varicella 08/20/2007,10/12/2002 Family History Medical History Relation Name Comments Bipolar disorder Brother Bipolar disorder Father Hypertension Father Bipolar disorder Mother Hypertension Mother gastric bypass Paternal Grandmother Relation Name Status Comments Brother Father Mother Paternal Grandmother Social History Tobacco Use Types Packs/Day Years Used Date Smoking Tobacco: Never Smokeless Tobacco: Never Tobacco Cessation:Counseling Given: Not Answered Alcohol Use Standard Drinks/Week Comments Yes 0 [...] or Galeano 05/19/2022 10 :20 AM EDT Last Filed Vital Signs Vital Sign Reading Time Taken Comments Blood Pressure 122/82 02/13/2025 10:22 AM EDT Pulse 83 02/13/2025 10:22 AM EDT Temperature 36.1 C (97 F) 02/13/2025 10:22 AM EDT Respiratory Rate 20 02/13/2025 10:22 AM EDT Oxygen Saturation 98% 02/13/2025 10:22 AM EDT Inhaled Oxygen Concentration - - Weight 139 kg (306 lb 6.4 oz) 02/13/2025 10:22 A M EDT Height 157.5 cm (5' 2 ) 02/13/2025 10:22 AM EDT Body Mass Index 56.04 02/13/2025 10:22 AM EDT Plan of Treatment Upcoming Encounters Date Type Department Care Team (Late st Contact Info) Description 04/14/2025 11:15 AM EDT Office Visit [facility] MEDICINE [address] [place] [address] Rosanne Lange, JEFF [address] [place] [address] 05/09/2025 1:00 PM EDT Procedure Visit [facility] [address] [place] [address] Rosanne Lange, COMPRESSOR STATION CHIEF ENGINEER [address] [place] [address] 05/12/2025 9:00 AM EDT Office Visit [facility] OPTOMETRY [address] [place] [address] Román, Rina, OD [address] [place] [address] Health Maintenance Due Date Last Done Comments Family Planning (PISQ) 2016 Meningococcal B Vaccine (1 of 2 - Standard) 2017 Chlamydia and Gonorrhea Screening 09/26/2022 09/26/2021 HPV/Cotest 03/28/2023 Pap Smear 03/28/2023 03/28/2020 COVID-19 Vaccine ( season) 2025 09/18/2021, 12/13/2020, 11/15/2020 Influenza Vaccine (#1) 2025 8, 07/28/2017, 06/13/2015, Additional history exists Alcohol/Substance Use Screening 02/13/2026 02/13/2025 Depression Screening 02/13/2026 02/13/2025, 02/14/20 Disability Screening 02/13/2026 02/13/2025 SDOH Screening 02/13/2026 02/13/2025 Tobacco Screening 02/13/2026 02/13/2025 Lipid Panel 09/26/2026 09/26/2021 DTaP/Tdap/Td Vaccines (8 - Td or Tdap) 11/17/2034 11/17/2024, 09/24/2012, 08/05/2005, Additional history exists Zoster Vaccines (1 of 2) 2051 RSV Patients and Patients Aged 60 years or older (1 - 1-dose 75+ series) 2076 Pneumococcal Vaccine: Pediatrics (0 to 5 Years) and At-Risk Patients (6 to 49) Years Aged Out 06/22/2002, 02/04/2002, 2001 No longer eligible based on patient's age to complete this topic HIB Vaccines Completed 04/25/2003, 10/18, 2001 Hepatitis B Vaccines Completed 04/25/2003, 10/12/2002, 2001, Additional history exists IPV Vaccines Completed 08/05/2005, 12/19, 2001, Additional history exists HPV Vaccines Completed 06/13/2015, 05/21, 09/28/2013, Additional history exists Meningococcal Vaccine Completed 07/28/2017 , 07/28/2017, 09/24/2012, Additional history exists HIV Screening Completed 09/26/2021 Hepatitis C Screening Completed 09/26/2021 Hepatitis A Vaccines Aged Out No long er eligible based on patient's age to complete this topic RSV under 20 months Aged Out No longe r eligible based on patient's age to complete this topic Rotavirus Vaccines Aged Out No longer eligible based on patient's age to complete this topic Procedures Procedure Name Priority Date/Time Associated Diagnosis Comments CHLAMYDIA/TRICHOMONA S/NEISSERIA GONORRHOEAE, PCR, URINE Routine 02/13/2025 10:33 AM EDT ZZZ HISTORICAL HEPATITIS C AB W/REFL TO HCV RNA, QN, PCR Routine 09/26/2021 12:00 AM EST HIV 1/2 ANTIGEN/ANTIBODY, FOURTH GENERATION W/RFL Routine 09/26/2021 12:00 AM EST LIPID PANEL, STANDARD Routine 09/26/2021 12:00 AM EST ZZZ HISTORICAL CHLAMYDIA/N. GONORRHOEAE RNA, TMA, UROGENITAL Routine 09/26/2021 12:00 AM EST HM PAP/HPV Routine 03/28/2020 12:00 AM EDT from Last 3 Months or Most Recently Relevant to Health Maintenance Results * Chlamydia/Trichomonas/Neisseria gonorrhoeae, PCR, Urine (02/13/2025 10:33 AM EDT) CT PCR, Urine NOT DETECTED Not Detect. [facility] Comment:A not detected test result does not exclude the possibilityof infection because test results can be affected byimproper specimen collection, concurrent antibiotic therapy,or the number of organisms in the specimen which may bebelow the sensitivity of the test. As with many diagnostictests, results from the Xpert CT/NG assay should beinterpreted in conjunction with other laboratory andclinical data available to the clinician.The Xpert CT/NG assay should not be used for the evaluationof suspected sexual abuse or for other medico-legalindications. Additional testing is recommended in anycircumstance when false positive or false negative resultscould lead to adverse medical, social or psychologicalconsequences. NG PCR, Urine NOT DETECTED Not Detect. [facility] Comment:A not detected test result does not exclude the possibilityof infection because test results can be affected byimproper specimen collection, concurrent antibiotic therapy,or the number of organisms in the specimen which may bebelow the sensitivity of the test. As with many diagnostictests, results from the Xpert CT/NG assay should beinterpreted in conjunction with other laboratory andclinical data available to the clinician.The Xpert CT/NG assay should not be used for the evaluationof suspected sexual abuse or for other medico-legalindications. Additional testing is recommended in anycircumstance when false positive or false negative resultscould lead to adverse medical, social or psychologicalconsequences. 02/13/2025 10:3 3 AM EDT 02/13/2025 2:03 PM EDT Rosanne Lange NP LAB URINE ORDERABLES Final Resul t [facility] [address] [place] [address] [phone] * HEPATITIS C AB W/REFL TO HCV RNA, QN, PCR (09/26/2021 12:00 AM EST) HEPATITIS C ANTIBODY NON-REACT ANIKET NON-REACT ANIKET [facility] INDEX 0.15 <1.00 [facility] Comment: HCV antibody was non-reactive. There is no laboratory evidence of HCV infection. In most cases, no further action is required. However, if recent HCV exposure is suspected, a test for HCV RNA (test code 08382) is suggested. For additional information please refer to http://[employer]/faq/AAG72v9 (This link is being provided for informational/ educational purposes only.) 09/26/2021 Yamilka GERBERP HISTORICAL/NON ORDERABLE LABS Final Result [facility] [address] * CHLAMYDIA/N. GONORRHOEAE RNA, TMA, UROGENITAL (09/26/2021 12:00 AM EST) Chlamydia trachomatis RNA, TMA, Urogenital NOT DETECTED NOT DETECTED [facility] COMMENT SEE COMMENT [facility] Comment: The analytical performance characteristics of this assay, when used to test SurePath(TM) specimens have been determined by [employer]. The modifications have not been cleared or approved by the FDA. This assay has been validated pursuant to the CLIA regulations and is used for clinical purposes. For additional information, please refer to https://education.[employer]/faq/QML233 (This link is being provided for information/ educational purposes only.) Neisseria gonorrhoeae RNA, TMA, Urogenital NOT DETECTED NOT DETECTED [facility] 09/26/2021 Yamilka Arriagasch ENGINE TESTING SUPERVISOR HISTORICAL/NON ORDERABLE LABS Final Result Performing Organization Address [facility] Co de Phone Number [facility] [address] [place] [address], * HIV 1/2 ANTIGEN/ANTIBODY,FOURTH GENERATION W/RFL (09/26/2021 12:00 AM EST) Pathologist [facility] HIV-1/2 ANTIGEN AND ANTIBODIES, 4TH GENERATION W/ REFLEX NON-REACT ANIKET NON-REACT ANIKET [facility] Comment: HIV-1 antigen and HIV-1/HIV-2 antibodies were not detected. There is no laboratory evidence of HIV infection. PLEASE NOTE: This information has been disclosed to you from records whose confidentiality may be protected by state law. If your state requires such protection, then the state law prohibits you from making any further disclosure of the information without the specific written consent of the person to whom it pertains, or as otherwise permitted by law. A general authorization for the release of medical or other information is NOT sufficient for this purpose. For additional information please refer to http://education.[employer]/faq/KWI275 (This link is being provided for informational/ educational purposes only.) The performance of this assay has not been clinically validated in patients less than 2 years old. 09/26/2021 [facility] BLOOD ORDERABLES Final Res ult Performing Organization Address [facility] Co de Phone Number [facility] [address] [place] [address], * (ABNORMAL) LIPID PANEL, STANDARD (09/26/2021 12:00 AM EST) Pathologist [facility] Chol/HDLC Ratio 3.6 <5.0 (calc) [facility] Cholesterol, Total 135 <200 mg/dL [facility] HDL Cholesterol 38(L) > OR = 50 mg/dL [facility] LDL Cholesterol 78 mg/dL (calc) [facility] Comment: Reference range: <100 Desirable range <100 mg/dL for primary prevention; <70 mg/dL for patients with CHD or diabetic patients with > or = 2 CHD risk factors. LDL-C is now calculated using the Sol calculation, which is a validated novel method providing better accuracy than the Friedewald equation in the estimation of LDL-C. Mario SS et al. TONI. 2013;310(19): 2703-5781 (http://education.[employer]/faq/IMY869) Non-HDL Cholesterol 97 <130 mg/dL (calc) [facility] Comment: For patients with diabetes plus 1 major ASCVD risk factor, treating to a non-HDL-C goal of <100 mg/dL (LDL-C of <70 mg/dL) is considered a therapeutic option. Triglycerides 106 <150 mg/dL [facility] 09/26/2021 Yamilka Bone ENGINE TESTING SUPERVISOR LAB BLOOD ORDERABLES Final Res ult [facility] [address] * HM PAP/HPV (03/28/2020 12:00 AM EDT) Pap Smear 1. NILM 1. NILM [facility] [place] [facility] Narrative [facility] [facility] - 03/28/2020 12:00 AM EDT INCORRECT DATA CHART CORRECTION SUBMITTED Historical Provider HEALTH MAINTENANCE Edited Result - Final [facility] [place] [facility] [address] [place] [address] from Last 3 Months or Most Recently Relevant to Health Maintenance Insurance [facility] C[facility] Care Teams Sprinkler Driver Relationship Specialty Start Date End Date Rosanne Lange NP [address] [place] [id number] PCP - General Family Medicine 02/13/25
--- OUTSIDE RECORDS SUMMARY | 2025-04-12 08:16 | XMS_ITS | Encounter Summary ---
Author Organization [employer] Address [address] [place] [address] Care Team Providers Care Turn Out Worker Name Role Phone Arsalan Halie GERBERP Primary Care Provider [phone] Rosanne Lange NP Primary Care Provider [phone] Encounter Details Date Type Department Care Team (Late st Contact Info) Description 07/04/2024 Orders Only [facility] [address] [place] [address] Klarissa Pinon Social History Tobacco Use Types Packs/Day Years Used Date Smoking Tobacco: Never Smokeless Tobacco: Never Alcohol Use Standard Drinks/Week Comments Yes 0 (1 standard drink = 0.6 oz pur e alcohol) Occasionally Housing Stability Answer Date Recorded What is your housing situation today? I do not have housing (Staying with others, in a hotel, in a [place] [facility] [place], living outside on the street, on a beach, in a car, or in a park 04/26/[address] you li ve. Do you have problems with any of the following? None of the above 04/26/2023 Food Insecurity Answer Date Recorded Within the past 12 months, y ou worried that your food would run out before you got money to buy more: Never True 05/07/2023 Within the past 12 months,th e food you bought just didn't last and you didn't have enough money to get more: Never True Transportation Answer Date Recorded In the past 12 months, has l ack of transportation kept you from medical appts, meetings, work or from getting things needed for daily living? No 05/07/2023 Utilities Answer Date Recorded In the past 12 months, has t he electric, gas, oil or water [employer] threatened to shut off services in your home? No 05/07/2023 Comments Unknown Sex and Gender Information Value [...] Description 04/14/2025 11:15 AM EDT Office Visit [facility] [address] [place] [address] Rosanne Lange, JEFF [address] [place] [address] 05/09/2025 1:00 PM EDT Procedure Visit [facility] [address] [place] [address] Rosanne Lange, CHARGING CAR OPERATOR [address] [place] [address] 05/12/2025 9:00 AM EDT Office Visit [facility] OPTOMETRY [address] [place] [address] Román, Rina, OD [address] [place] [address] documented as of this encounter Procedures Procedure Name Priority Date/Time Associated Diagnosis Comments CHLAMYDIA/TRICHOMON /NEISSERIA GONORRHOEAE, PCR, URINE Routine 02/13/2025 10:33 AM EDT HM PAP/HPV Routine 03/28/2020 12:00 AM EDT documented in this encounter Results * Chlamydia/Trichomonas/Neisseria gonorrhoeae, PCR, Urine (02/13/2025 10:33 AM EDT) CT PCR, Urine NOT DETECTED Not Detect. [facility] Comment:A not detected test result [...] NG PCR, Urine NOT DETECTED Not Detect. [facility] Comment:A not detected test result [...] EDT 02/13/2025 2:03 PM EDT Rosanne Lange CHARGING CAR OPERATOR LAB URINE ORDERABLES Final Resul t Performing Organization Address [facility] Co de Phone Number [facility] [address] [place] [phone] * HM PAP/HPV (03/28/2020 12:00 AM EDT) Pap Smear 1. NILM 1. NILM [facility] Narrative [facility] - 03/28/2020 12:00 AM EDT INCORRECT DATA CHART CORRECTION SUBMITTED Historical Provider HEALTH MAINTENANCE Edited Result - Final Performing Organization Address City/[facility]/ZIP Co de Phone Number [facility] [address] [place] [address] documented in this encounter Visit Diagnoses Not on filedocumented in this encounter Care Teams Turn Out Worker Relationship Specialty Start Date End Date Halie Arriaza FNP [address] [place] [address] PCP - General Family Medicine 03/13/22 10/18/24 Rosanne Lange NP [address] [place] [address] PCP - General Family Medicine 02/13/25 documented as of this encounter
[2025-04-12 12:31] LABS: Hemoglobin A1C 206.2324 umol/L; Total Hemoglobin (HGBA1C) 5628.3769 umol/L
[2025-04-12 12:42] LABS: Alanine Aminotransferase 17 U/L (0-31); Albumin Level 3.8 g/dL (3.5-5.0); Alkaline Phosphatase 83 U/L (39-117); Anion Gap 8 (12-20); Aspartate Amino Transferase 25 U/L (5-31); Blood Urea Nitrogen 10 mg/dL (9-16); Calcium 8.5 mg/dL (8.4-10.2); Carbon Dioxide 28 mmol/L (22-29); Chloride 108 mmol/L (96-108); Cholesterol 133 mg/dL (<200); Estimated Glomerular Filt Rate > 60; HDL Cholesterol 33 mg/dL (>40); Potassium 4.2 mmol/L (3.3-5.1); Sodium 140 mmol/L (135-145); Total Protein 7.0 g/dL (6.5-8.0); Triglycerides 141 mg/dL (<150)
== END 2025-04-12 08:03 | disposition home or self-care (01) ==
LOC: HO.HHCL 08:02
PROVIDERS: PCP Nurse Practitioner Family; Visit Provider Nurse Practitioner Family
DX: E66.01 Morbid (severe) obesity due to excess calories (principal)
CPT/HCPCS: 36415; 80053; 80061; 83036

== ENCOUNTER 2025-05-09 17:10 | Outpatient (REF) | payer MEDICAID, SELFPAY ==
--- OUTSIDE RECORDS SUMMARY | 2025-05-09 13:00 | XMS_ITS | Encounter Summary ---
Author Organization [employer] Address [address] [place] [address] Care Team Providers Care Publications Designer Name Role Phone Rosanne Lange NP Primary Care Provider [phone] Encounter Details Date Type Department Care Team (Latest Contact Info) Description 05/09/2025 1:00 PM EDT Procedure Visit [facility] [address] [place] [address] Rosanne Lange NP [address] [place] [address] Cervical cancer screening (Primary Dx); Current moderate episode of major depressive disorder without prior episode (CMS/HCC) (HCC) Social History Tobacco Use Types Packs/Day Years Used Date Smoking Tobacco: Never Passive Smoke Exposure: Never Smokeless Tobacco: Never Tobacco Cessation:Counseling Given: Not Answered Alcohol Use Standard Drinks/Week Comments Yes 0 (1 standard drink = 0.6 oz pur e alcohol) Occasionally Depression Answer Date Recorded Patient Health Questionnaire-9 Score 9 04/19/2025 Patient Health Questionnaire-9 Score 9 04/19/2025 Last PHQ-9: Questionnaire Data Not on file 1 Housing Stability Answer Date Recorded What is your housing situation today? I have fidencio mary 02/06/[address] you li [...] Answer Date Recorded Patient Health Questionnaire-2 Score 4 04/19/2025 Internet Access Answer Date Recorded Internet Access Q1 Yes 02/06/2025 Internet Access Q2 Not on file 02/06/2025 Comments Unknown Sex and Gender Information Value Date Recorded Sex Assigned at Female 05/19/2022 10:20 AM EDT Legal Sex Female 10:20 AM EDT Gender Identity Other 05/19/2022 10:20 AM EDT Sexual Orientation Lesbian or Galeano 05/19/2022 10 :20 AM EDT documented as of this encounter Last Filed Vital Signs Vital Sign Reading Time Taken Comments Blood Pressure 140/86 05/09/2025 1:04 PM EDT Pulse 104 05/09/2025 1:04 PM EDT Temperature 36.7 C (98 F) 05/09/2025 1:04 PM EDT Respiratory Rate 17 05/09/2025 1:04 PM EDT Oxygen Saturation 98% 05/09/2025 1:04 PM EDT Inhaled Oxygen Concentration - - Weight 142 kg (313 lb 12.8 oz) 05/09/2025 1:04 P M EDT Height 158.8 cm (5' 2.5 ) 05/09/2025 1:04 PM EDT Body Mass Index 56.48 05/09/2025 1:04 PM EDT documented in this encounter Progress Notes * Rosanne Lange NP - 05/09/2025 1:00 PM EDT Davon Costa Rubens Duron is a 24 y.o. adult who presents to the office for No chief complaint on file. 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 Psychiatric/Behavioral: Positive for dysphoric mood. The patient is nervous/anxious. BP (!) 140/86 (BP Location: Left arm, Patient Position: Sitting, BP Cuff Size: Large adult) [id number] Temp 98 ??F (36.7 ??C) (Oral) Resp 17 Ht 5' 2.5 (1.588 m) Wt 313 lb 12.8 oz (142 kg) LMP 04/25/2025 (Approximate) SpO2 98% BMI 56.48 kg/m?? shorter Physical Exam Constitutional: Appearance: Normal appearance. Davon is obese. HENT: Head: Normocephalic. Nose: Nose normal. Eyes: Conjunctiva/sclera: Conjunctivae normal. Cardiovascular: Rate and Rhythm: Regular rhythm. Heart sounds: Normal heart sounds. Pulmonary: Breath sounds: Normal breath sounds. Abdominal: Palpations: Abdomen is soft. Genitourinary: General: Normal vulva. Exam position: Lithotomy position. Pubic Area: No rash. Labia: Right: No rash or lesion. Left: No rash or lesion. Musculoskeletal: Cervical back: Neck supple. - GENITOURINARY: External genitalia normal. Speculum examination performed with internal pressure tolerated. Cervix visualized without abnormalities and swabs taken for Pap smear, gonorrhea, and chlamydia testing. Results: No visits with results within 28 Day(s) from this visit. Latest known visit with results is: Office Visit on 02/13/2025 Component Date Value Ref Range Status Sodium 04/12/2025 140 135 - 145 mmol/L Final Potassium 04/12/2025 4.2 3.3 - 5.1 mmol/L Final Chloride 04/12/2025 108 96 - 108 mmol/L Final Carbon Dioxide 04/12/2025 28 22 - 29 mmol/L Final Anion Gap 04/12/2025 8 (L) 12 - 20 Final Urea Nitrogen (BUN) 04/12/2025 10 9 - 16 mg/dL Final Creatinine, Serum 04/12/2025 0.77 0.5 - 1.4 mg/dL Final Estimated Glomerular Filt Rate 04/12/2025 >60 Final Chronic Kidney Disease: Estimated GFR < 60 mL/min/1.68z9Vroxtx Kidney Disease: Estimated GFR < 15 mL/min/1.73m2 Glucose 04/12/2025 107 60 - 115 mg/dL Final Calcium 04/12/2025 8.5 8.4 - 10.2 mg/dL Final Bilirubin, Total 04/12/2025 0.3 0.0 - 1.0 mg/dL Final Aspartate Amino Transferase 04/12/2025 25 5 - 31 U/L Final Alanine Aminotransferase 04/12/2025 17 0 - 31 U/L Final Total Protein 04/12/2025 7.0 6.5 - 8.0 g/dL Final Albumin Level 04/12/2025 3.8 3.5 - 5.0 g/dL Final Alkaline Phosphatase 04/12/2025 83 39 - 117 U/L Final Triglycerides 04/12/2025 141 <150 mg/dL Final Desirable Triglyceride: less than 150 mg/dLBorderline High Triglyceride 150-199 mg/dLHigh Triglyceride: 200-499 mg/dLVery High Triglyceride: greater than or equal to 5OO mg/dL Cholesterol 04/12/2025 133 <200 mg/dL Final Desirable Cholesterol: less than 200 mg/dLBorderline High Cholesterol: 200-239 mg/dLHigh Cholesterol: greater than 239 mg/dL LDL Cholesterol Calculated 04/12/2025 72 <100 mg/dL Final Desirable LDL: less than 100 mg/dLNear Optimal/Above Optimal LDL: 110-129 mg/dLBorderline High LDL:130-159 mg/dLHigh LDL: 160-189 mg/dLVery High LDL: greater than or equal to 190 mg/dL HDL Cholesterol 04/12/2025 33 (L) >40 mg/dL Final Desirable HDL: greater than 40 mg/dL Note: This HDL assay may give artificially low results in patients with liver disease. Hemoglobin A1c 04/12/2025 5.5 <6.0 % Final Hemoglobin A1C Reference Range Adults: 4.8 - 6.0 % Non diabetic: < 6.0 % Goal: < 7.0 %Additional Action Suggested: > 8.0 %Note: Hemoglobin A1c results are invalid for patients with abnormalamounts of HbF. Blood transfusions may impact the HbA1c concentration in the patient sample. Estimated Average Glucose 04/12/2025 111 mg/dL Final eAG = Estimated average glucose which is %A1C expressed asaverage glucose, using the formula of the [id number] Glucose study (ADAG), Diabetes Care, Vol.31,#8,2007 Assessment & Plan Cervical cancer screening Orders: Pap Smear Chlamydia/N. Gonorrhoeae RNA, TMA, Vaginal Current moderate episode of major depressive disorder without prior episode (CMS/HCC) ([facility]) Assessment & Plan Cervical cancer screening: - Pap smear performed for cervical cancer screening. No abnormal findings noted on visual inspection. - Ordered Pap smear. Ordered gonorrhea and chlamydia screening. Advised possible mild spotting post-procedure. No endocervical swab performed due to possible . Advised patient to report results of home test at next appointment. Current moderate episode of major depressive disorder without prior episode (CMS/HCC) ([facility]): - Moderate depressive symptoms present, with some improvement noted. Patient reports fewer days of poor mental health but continues to experience intermittent low mood. - Increased bupropion dose to 300 mg daily. Sent new prescription for 30-day supply with two refills. Advised to monitor for insomnia and anxiety symptoms during dose adjustment. Recommended follow-up in 4 to 6 weeks to reassess mental health and medication tolerability. - Risks and side effects: Discussed risk of insomnia and anxiety with dose increase. Advised patient to revert to previous dose if side effects are intolerable. Contraception counseling: - Patient does not desire at this time. Expressed interest in learning about contraceptive options and concerns regarding side effects, especially weight gain. - Provided comprehensive counseling on contraceptive methods including oral contraceptives, Nexplanon, IUD (hormonal and copper), patch, NuvaRing, condoms, and Plan B. Advised patient to review options and follow up after confirming negative test. - Risks and side effects: Discussed potential side effects of various contraceptive methods, including weight gain, irregular bleeding, cramping, and mood changes. Weight management and bariatric evaluation: - Patient undergoing evaluation for bariatric surgery. Body fat percentage measured at 51%. Weight stable since March, with minor fluctuation. - Encouraged dietary modifications focusing on increased intake of fruits and vegetables and reduced reliance on food for emotional comfort. Bariatric follow- up appointment scheduled for May. Prescription - Bupropion 300 mg once daily in the morning; 30-day supply with two refills; risk of insomnia and anxiety during dose adjustment Appointments - Bariatric phone consultation on June 12, 2025 - Mental health follow-up in 4-6 weeks Current Medications[4] Based on our discussion, I have outlined the following instructions for you: - You may notice some mild spotting (light bleeding) after your Pap smear procedure. This is normal. - Report the result of your home test at your next appointment and review your control options after confirming a negative result. - Start taking bupropion at the new dose of 300 mg each day, as prescribed. - You have a new prescription for bupropion for 30 days, with two refills. - Pay attention to any trouble sleeping or feeling more anxious while your medication dose is beingadjusted. - If you have trouble sleeping or feel very anxious and cannot tolerate these side effects, go backto your previous dose of bupropion. Next appointment(s): - Bariatric phone consultation on June 12, 2025 - Mental health follow-up in 4-6 weeks Thank you again for your visit, and we look forward to supporting you in your journey to better health. This note was drafted using Ambient (AI) technology. The patient/patient's guardian has been informed and has consented to the use of this technology: Yes [1] Patient Active Problem List Diagnosis Depressive disorder Iron deficiency anemia Obesity Vitamin D deficiency Dietary counseling Hx of gestational diabetes mellitus, not currently Morbid obesity ([facility]/HCC) ([facility]) Current episode of major depressive disorder without prior episode Moderate episode of recurrent major depressive disorder (CMS/HCC) ([facility]) Cervical cancer screening [2] Past Medical History: Diagnosis Date Bipolar affective disorder ([facility]) ([facility]) [3] No Known Allergies [4] Current Outpatient Medications: buPROPion XL (Wellbutrin XL) 300 MG 24 hr tablet, Take 1 tablet (300 mg) by mouth Once per day. Do not crush, chew, or split., Disp: 30 tablet, Rfl: 2 Dulaglutide (Trulicity) 0.75 MG/0.5ML solution auto-injector, Inject 0.75 mg under the skin 1 (one)time per week for 28 days., Disp: 2 mL, Rfl: 0 melatonin 5 MG tablet, Take 1 tablet (5 mg) by mouth if needed at bedtime (insomnia)., Disp: 30 tablet, Rfl: 2 Tirzepatide-Weight Management (Zepbound) 2.5 MG/0.5ML solution auto-injector, Inject 0.5 mL (2.5 mg) under the skin 1 (one) time per week for 28 days., Disp: 2 mL, Rfl: 0 documented in this encounter Miscellaneous Notes * Assessment & Plan Note - Rosanne Lange NP - 05/09/2025 1:00 PM EDTAssociated Problem(s): Cervical cancer screening Orders: Pap Smear Chlamydia/N. Gonorrhoeae RNA, TMA, Vaginal * Assessment & Plan Note - Rosanne Lange NP - 05/09/2025 1:00 PM EDTAssociated Problem(s): Current episode of major depressive disorder without prior episode documented in this encounter Plan of Treatment Upcoming Encounters Date Type Department Care Team (Late st Contact Info) Description 05/12/2025 9:00 AM EDT Office Visit [facility] [address] [place] [address] Rina France, OD [address] [place] [address] 07/18/2025 1:30 PM EST Office Visit [facility] [address] [place] [address] Rosanne Lange NP [address] [place] [address] Scheduled Orders Name Type Priority Associated Diagnoses Order Schedule Pap Smear Pathology and Cytology Routine Cervical cancer screening Ordered: 05/09/2025 Chlamydia/N. Gonorrhoeae RNA, TMA, Vaginal Microbiology Routine Cervical cancer screening Ordered: 05/09/2025 documented as of this encounter Visit Diagnoses Diagnosis Cervical cancer screening- Primary Screening for malignant neoplasm of the cervix Current moderate episode of major depressive disorder without prior episode (CMS/HCC) (HCC) documented in this encounter Additional Health Concerns Assessment Noted Time PHQ-9 Depression Total Score: 9 04/19/20 1:21 PM EDT documented as of this encounter Care Teams Publications Designer Relationship Specialty Start Date End Date Rosanne Lange NP [address] [place] [address] PCP - General Family Medicine 02/13/25 documented as of this encounter
--- OUTSIDE RECORDS SUMMARY | 2025-05-09 21:14 | XMS_ITS | Encounter Summary ---
Author Organization [employer] Address [address] [facility] [address] [place] [address] Care Team Providers Care Explosive Man Name Role Phone Rosanne Lange NP Primary Care Provider [phone] Encounter Details Date Type Department Care Team (Latest Contact Info) Description 05/09/2025 Travel Social History Tobacco Use Types Packs/Day Years Used Date Smoking Tobacco: Never Passive Smoke Exposure: Never Smokeless Tobacco: Never Alcohol Use Standard Drinks/Week Comments Yes 0 (1 standard drink = 0.6 oz pur e alcohol) Occasionally Depression Answer Date Recorded Patient Health Questionnaire-9 Score 9 04/19/2025 Patient Health Questionnaire-9 Score 9 04/19/2025 Last PHQ-9: Questionnaire Data Not on file 1 Housing Stability Answer Date Recorded What is your housing situation today? I have fidenciosepideh hernandez 02/06/[address] you [...] Description 05/12/2025 9:00 AM EDT Office Visit [facility] [address] [place] [address] RománRina gambino, OD [address] [place] [address] 07/18/2025 1:30 PM EST Office Visit [facility] [address] [place] [address] Rosanne Lange NP [address] [place] [address] documented as of this encounter Visit Diagnoses Not on filedocumented in this encounter Additional Health Concerns Assessment Noted Time PHQ-9 Depression Total Score: 9 04/19/20 1:21 PM EDT documented as of this encounter Care Teams Explosive Man Relationship Specialty Start Date End Date Rosanne Lange NP [address] [place] [address] PCP - General Family Medicine 02/13/25 documented as of this encounter
--- OUTSIDE RECORDS SUMMARY | 2025-05-09 21:14 | XMS_ITS | Encounter Summary ---
Author Organization [employer] Address [address] [place] [address] [address] [place] [address] Care Team Providers Care Production Sound Mixer Name Role Phone Halie Arriaza Primary Care Provider [phone] Rosanne Lange NP Primary Care Provider [phone] Encounter Details Date Type Department Care Team (Late Contact Info) Description 02/17/2023 [facility] Information Management [address] [place] [address] Halie Arriaza FNP [address] [place] [address] Social History Tobacco Use Types Packs/Day Years [...] Description 05/12/2025 9:00 AM EDT Office Visit [facility] OPT[facility] [address] [place] [address] Román, Rina, OD [address] [place] [address] 07/18/2025 1:30 PM EST Office Visit [facility] [address] [place] [address] Rosanne Lange NP [address] [place] [address] documented as of this encounter Visit Diagnoses Not on filedocumented in this encounter Care Teams Production Sound Mixer Relationship Specialty Start Date End Date Halie Arriaza FNP [address] [place] [address] PCP - General Family Medicine 03/13/22 10/18/24 Rosanne Lange NP [address] [place] [address] PCP - General Family Medicine 02/13/25 documented as of this encounter
--- OUTSIDE RECORDS SUMMARY | 2025-05-09 21:14 | XMS_ITS | Encounter Summary ---
Author Organization [employer] Address [address] [place] [address] Care Team Providers Care Scalemaker Name Role Phone Arsalan Halie GERBERP Primary Care Provider [phone] Rosanne Lange NP Primary Care Provider [phone] Encounter Details Date Type Department Care Team (Late st Contact Info) Description 07/04/2024 Orders Only [facility] [address] [place] [address] Klarissa Pinon Social History Tobacco Use Types Packs/Day Years Used Date Smoking Tobacco: Never Smokeless Tobacco: Never Alcohol Use Standard Drinks/Week Comments Yes 0 (1 standard drink = 0.6 oz pur e alcohol) Occasionally Housing Stability Answer Date Recorded What is your housing situation today? I do not have housing (Staying with others, in a hotel, in a [facility], living outside on the street, on a [...] t he electric, gas, oil or water [employer] threatened to shut off services in your [...] Description 05/12/2025 9:00 AM EDT Office Visit [facility] OPT[facility] [address] [place] [address] RománRina gambino, OD [address] [place] [address] 07/18/2025 1:30 PM EST Office Visit [facility] [address] [place] [address] Rosanne Lange NP [address] [place] [address] documented as of this encounter Procedures Procedure Name Priority Date/Time Associated Diagnosis Comments CHLAMYDIA/TRICHOMON /NEISSERIA GONORRHOEAE, PCR, URINE Routine 02/13/2025 10:33 AM EDT HM PAP/HPV Routine 03/28/2020 12:00 AM EDT documented in this encounter Results * Chlamydia/Trichomonas/Neisseria gonorrhoeae, PCR, Urine (02/13/2025 10:33 AM EDT) CT PCR, Urine NOT DETECTED Not Detect. [facility] Comment:A not detected test result [...] NG PCR, Urine NOT DETECTED Not Detect. [facility] Comment:A not detected test result [...] EDT 02/13/2025 2:03 PM EDT Rosanne Lange COLOR DIPPER LAB URINE ORDERABLES Final Resul t Performing Organization Address [facility]/ZIP Co de Phone Number [facility] [address] [place] [address] [phone] * HM PAP/HPV (03/28/2020 12:00 AM EDT) Pap Smear 1. NILM 1. NILM [facility] Narrative [facility] - 03/28/2020 12:00 AM EDT INCORRECT DATA CHART CORRECTION SUBMITTED us Historical Provider [facility] MAINTENANCE Edited Result - Final Performing Organization Address City/[facility]/ZIP Co de Phone Number [facility] [address] [place] [phone] documented in this encounter Visit Diagnoses Not on filedocumented in this encounter Care Teams Scalemaker Relationship Specialty Start Date End Date Halie Arriaza FNP [address] [place] [address] PCP - General Family Medicine 03/13/22 10/18/24 Rosanne Lange NP [address] [place] [address] PCP - General Family Medicine 02/13/25 documented as of this encounter
--- OUTSIDE RECORDS SUMMARY | 2025-05-09 21:14 | XMS_ITS | Encounter Summary ---
Author Organization [employer] Address [address] [facility] [address] [place] [address] Care Team Providers Care Intermediate Frame Tender Name Role Phone Rosanne Lange NP Primary Care Provider [phone] Reason for Visit * Reason Onset Date Comments Prior Authorization 02/28/2025 Encounter Details Date Type Department Care Team ([facility] Contact Info) Description 02/28/2025 Telephone [facility] [address] [place] [address] Rosanne Lange NP [address] [place] [address] Prior Authorization Social History Tobacco Use Types [...] Description 05/12/2025 9:00 AM EDT Office Visit [facility] OPT[facility] [address] [place] [address] Rina France, OD [address] [place] [address] 07/18/2025 1:30 PM EST Office Visit [facility] [address] [place] [address] Rosanne Lange NP [address] [place] [address] documented as of this encounter Visit Diagnoses Not on filedocumented in this encounter Additional Health Concerns Assessment Noted Time PHQ-9 Depression Total Score: 6 02/14/20 10:24 AM EDT documented as of this encounter Care Teams Intermediate Frame Tender Relationship Specialty Start Date End Date Rosanne Lange NP [address] [place] [address] PCP - General Family Medicine 02/13/25 documented as of this encounter
--- OUTSIDE RECORDS SUMMARY | 2025-05-09 21:14 | XMS_ITS | Encounter Summary ---
Author Organization [employer] Address [address] [facility] [address] [place] [address] Care Team Providers Care Artificial Flowers Dyer Name Role Phone Rosanne Lange NP Primary Care Provider [phone] Reason for Visit * Reason Comments Pre-visit Planning SDOH unable to reach LVM Encounter Details Date Type Department Care Team ([facility] Contact Info) Description 05/05/2025 Patient Outreach [facility] [address] [place] [address] Rosanne Lange NP [address] [place] [address] Pre-visit Planning (SDOH unable to reach LVM) Social History Tobacco Use Types Packs/Day Years [...] AM EDT documented as of this encounter Progress Notes * Radha Ho - 05/05/2025 2:35 PM EDT MICHELLE Sarabia placed outbound call to patient to complete pre-visit planning. No answer at this time. Patient name and were not confirmed. CC left voicemail requesting return call. Direct contactinformation provided. documented in this encounter Plan of Treatment Upcoming Encounters Date Type Department Care Team (Late st Contact Info) Description 05/12/2025 9:00 AM EDT Office Visit [facility] OPTOMETRY [address] [place] [address] Román, Rina, OD [address] [place] [address] 07/18/2025 1:30 PM EST Office Visit [facility]INE [address] [place] [address] Rosanne Lange NP [address] [place] [address] documented as of this encounter Visit Diagnoses Not on filedocumented in this encounter Additional Health Concerns Assessment Noted Time PHQ-9 Depression Total Score: 9 04/19/20 25 1:21 PM EDT documented as of this encounter Care Teams Artificial Flowers Dyer Relationship Specialty Start Date End Date Rosanne Lange NP [address] [place] [address] PCP - General Family Medicine 02/13/25 documented as of this encounter
--- OUTSIDE RECORDS SUMMARY | 2025-05-09 21:14 | XMS_ITS | Clinical Summary ---
Author Organization [employer] Address [address] [facility] [address] [place] [address] Care Team Providers Care Pocket Secretary Assembler Name Role Phone Rosanne Lange NP Primary Care Provider [phone] Allergies No known active allergies Medications * This document contains information received from the source organization and may not represent a complete record from that organization. Dulaglutide (Trulicity) 0.75 MG/0.5ML solution auto-injectorI ndications:Mor bid obesity (CMS/HCC) ([facility]) Inject 0.75 mg under the skin 1 (one) time per week for 28 days. 2 mL 5 Active Tirzepatide-We ight Management (Zepbound) 2.5 MG/0.5ML solution auto-injectorI ndications:Mor bid obesity (CMS/HCC) ([facility]) Inject 0.5 mL (2.5 mg) under the skin 1 (one) time per week for 28 days. 2 mL 5 05/12/20 25 Active melatonin 5 MG tabletIndicati ons:Drug-induc ed insomnia (CMS/HCC) (HCC) Take 1 tablet (5 mg) by mouth if needed at bedtime (insomnia). 30 tablet 2 5 07/19/20 25 Active buPROPion XL (Wellbutrin XL) 300 MG 24 hr tablet Take 1 tablet (300 mg) by mouth Once per day. Do not crush, chew, or split. 30 tablet 2 5 05/09/20 26 Active buPROPion XL (Wellbutrin XL) 150 MG 24 hr tablet Take 1 tablet (150 mg) by mouth Once per day. Do not crush, chew, or split. 30 tablet 2 5 04/14/20 25 Discontinued buPROPion XL (Wellbutrin XL) 150 MG 24 hr tablet Take 1 tablet (150 mg) by mouth Once per day. Do not crush, chew, or split. 30 tablet 2 5 05/09/20 25 Discontinued Melatonin 5 MG chewable tablet Chew 1 tablet (5 mg) if needed at bedtime (as needed for insomnia). 30 tablet 2 5 04/20/20 25 Discontinued Active Problems Problem Noted Date Diagnosed Date Cervical cancer screening 05/09/2025 Assessment & Plan (05/09/2025 4:31 PM EDT): Orders: Pap Smear Chlamydia/N. Gonorrhoeae RNA, TMA, Vaginal Moderate episode of recurren t major depressive disorder ([facility]) 04/18/2025 Morbid obesity ([facility]) 04/14/2025 Assessment & Plan (04/14/2025 2:19 PM EDT): Orders: Referral to Bariatric Surgery; Future Tirzepatide-Weight Management (Zepbound) 2.5 MG/0.5ML solution auto-injector; Inject 0.5 mL (2.5 mg) under the skin 1 (one) time per week for 28 days. Current episode of major dep ressive disorder without prior episode 04/14/2025 Assessment & Plan (05/09/2025 4:31 PM EDT): Assessment & Plan (04/14/2025 2:19 PM EDT): Orders: Referral to Behavioral Health; Future Dietary counseling 02/13/2025 Assessment & Plan (02/13/2025 [...] to continue with healthy lifestyle interventions Encounters * This document contains information received from the source organization and may not represent a complete record from that organization. Date Type Department Care Team Description 05/09/2025 1:00 PM EDT Procedure Visit [facility] [address] [place] [address] [phone] Rosanne Lange NP Cervical cancer screening (Primary Dx); Current moderate episode of major depressive disorder without prior episode (CMS/HCC) (HCC) 05/09/2025 Travel 05/08/[address] [address] Rosanne Lange NP Chart Prep 05/05/2025 Patient Outreach [facility] [address] [place] [address] Rosanne Lange NP Pre-visit Planning (SDOH unable to reach [facility]) 04/20/2025 Orders Only [facility] [address] [place] [address] Rosanne Lange NP Drug-induced insomnia (CMS/HCC) (HCC) (Primary Dx) 04/18/2025 Travel 04/14/2025 11:15 AM EDT Office Visit [address] [address] Rosanne Lange NP Morbid obesity (CMS/HCC) (Primary Dx); Current episode of major depressive disorder without prior episode, unspecified depression episode severity 04/14/2025 Travel 04/11/[address] [address] Rosanne Lange NP Medication Question 02/28/[address] [address] Rosanne Lange NP Prior Authorization 02/23/[address] [address] Janet Del Castillo MA sep recall 02/13/2025 9:45 AM EDT Office Visit [address] [address] Rosanne Lange NP Depressive disorder (Primary Dx); Dietary counseling; Exercise counseling; Morbid obesity (CMS/HCC); Healthcare maintenance; Hx of gestational diabetes mellitus, not currently ; Class 3 severe obesity with body mass index (BMI) of 50.0 to 59.9 in adult, unspecified obesity type, unspecified whether serious comorbidity present 02/13/2025 Travel 02/10/[address] [address] Janet Del Castillo MA Chart Prep 02/06/2025 Patient Outreach [facility] [address] [place], [place] [phone] Rosanne Lange NP Pre-visit Planning (SDOH negative, Tobacco screening negative. [...] Mass Index 56.48 05/09/2025 1:04 PM EDT Plan of Treatment Upcoming Encounters Date Type Department Care Team (Late st Contact Info) Description 05/12/2025 9:00 AM EDT Office Visit [facility] OPTOMETRY [address] [place] [address] Rina France, OD [address] [place] [address] 07/18/2025 1:30 PM EST Office Visit [facility]INE [address] [place] [address] Rosanne Lange, COAL PASSER [address] [place] [address] Health Maintenance Due Date Last Done Comments Family Planning (PISQ) 2016 Meningococcal B Vaccine (1 of 2 - Standard) 2017 Chlamydia and Gonorrhea Screening 09/26/2022 09/26/2021 HPV/Cotest 03/28/2023 Pap Smear 03/28/2023 03/28/2020 COVID-19 Vaccine ( season) 2025 09/18/2021, 12/13/2020, 11/15/2020 Influenza Vaccine (#1) 2025 8, 07/28/2017, 06/13/2015, Additional history exists Depression Monitoring 10/18/2025 04/19/2025, 025 Alcohol/Substance Use Screening 02/13/2026 02/13/2025 Disability Screening 02/13/2026 02/13/2025 SDOH Screening 02/13/2026 02/13/2025 Tobacco Screening 05/09/2026 05/09/2025 Lipid Panel 04/12/2030 04/12/2025, 09/26/2021 DTaP/Tdap/Td Vaccines (8 - Td or [...] Procedure Name Priority Date/Time Associated Diagnosis Comments HEMOGLOBIN A1C Routine 04/12/2025 8:16 AM EDT Morbid obesity (CMS/HCC) LIPID PANEL, STANDARD Routine 04/12/2025 8:06 AM EDT Morbid obesity (CMS/HCC) COMPREHENSIVE METABOLIC PANEL Routine 04/12/2025 8:06 AM EDT Morbid obesity (CMS/HCC) CHLAMYDIA/TRICHOMONAS/ NEISSERIA GONORRHOEAE, PCR, URINE Routine 02/13/2025 10:33 AM EDT [facility] HISTORICAL HEPATITIS C AB W/REFL TO HCV RNA, QN, PCR Routine 09/26/2021 12:00 AM EST HIV 1/2 ANTIGEN/ANTIBODY, FOURTH GENERATION W/RFL Routine 09/26/2021 12:00 AM EST [facility] HISTORICAL CHLAMYDIA/N. GONORRHOEAE RNA, TMA, UROGENITAL Routine 09/26/2021 12:00 AM EST HM PAP/HPV Routine 03/28/2020 12:00 AM EDT from Last 3 Months or Most Recently Relevant to Health Maintenance Results * Hemoglobin A1c (04/12/2025 8:16 AM EDT) Hemoglobin A1c 5.5 <6.0 % [facility] Comment:Hemoglobin A1C Refer ence Range Adults: 4.8 - 6.0 % Non diabetic: < 6.0 % Goal: < 7.0 %Additional Action Suggested: > 8.0 %Note: Hemoglobin A1c results are invalid for patients with abnormal amounts of HbF. Blood transfusions may impact the HbA1c concentration in the patient sample. Estimated Average Glucose 111 mg/dL [facility] Comment:eAG = Estimated ave rage glucose which is %A1C expressed asaverage glucose, using the formula of the [id number] Glucose study (ADAG), Diabetes Care, Vol.31,#8,Feb. 2007 Blood Venous blood specimen / Unknown 04/12/2025 8:16 AM EDT 04/12/2025 11:28 AM EDT us Rosanne Lange NP LAB BLOOD ORDERABLES Final Resul t [facility] [address] [place] [phone] * (ABNORMAL) Lipid Panel, Standard (04/12/2025 8:06 AM EDT) Triglycerides 141 <150 mg/dL [facility] Comment:Desirable Triglyceri de: less than 150 mg/dLBorderline High Triglyceride 150-199 mg/dLHigh Triglyceride: 200-499 mg/dLVery High Triglyceride: greater than or equal to 5OO mg/dL Cholesterol 133 <200 mg/dL [facility] Comment:Desirable Cholestero l: less than 200 mg/dLBorderline High Cholesterol: 200-239 mg/dLHigh Cholesterol: greater than 239 mg/dL LDL Cholesterol Calculated 72 <100 mg/dL [facility] Comment:Desirable LDL: less than 100 mg/dLNear Optimal/Above Optimal LDL: 110- 129 mg/dLBorderline High LDL: 130-159 mg/dLHigh LDL: 160-189 mg/dLVery High LDL: greater than or equal to 190 mg/dL HDL Cholesterol 33(L) >40 mg/dL [facility] Comment:Desirable HDL: great er than 40 mg/dL Note: This HDL assay may give artificially low results in patients with liver disease. Blood Venous blood specimen / Unknown 04/12/2025 8:06 AM EDT 04/12/2025 11:28 AM EDT us Rosanne Lange COAL PASSER LAB BLOOD ORDERABLES Final Resul t [facility] [address] [place] [address] [phone] * (ABNORMAL) Comprehensive Metabolic Panel (04/12/2025 8:06 AM EDT) Sodium 140 135 - 145 mmol/L [facility] Potassium 4.2 3.3 - 5.1 mmol/L [facility] Chloride 108 96 - 108 mmol/L [facility] Carbon Dioxide 28 22 - 29 mmol/L [facility] Anion Gap 8(L) 12 - 20 [facility] Urea Nitrogen (BUN) 10 9 - 16 mg/dL [facility] Creatinine, Serum 0.77 0.5 - 1.4 mg/dL [facility] Estimated Glomerular Filt Rate >60 [facility] Comment:Chronic Kidney Disea se: Estimated GFR < 60 mL/min/1.42p2Muwhvz Kidney Disease: Estimated GFR < 15 mL/min/1.73m2 Glucose 107 60 - 115 mg/dL [facility] Calcium 8.5 8.4 - 10.2 mg/dL [facility] Bilirubin, Total 0.3 0.0 - 1.0 mg/dL [facility] Aspartate Amino Transferase 25 5 - 31 U/L [facility] Alanine Aminotransferase 17 0 - 31 U/L [facility] Total Protein 7.0 6.5 - 8.0 g/dL [facility] Albumin Level 3.8 3.5 - 5.0 g/dL [facility] Alkaline Phosphatase 83 39 - 117 U/L [facility] Blood Venous blood specimen / Unknown 04/12/2025 8:06 AM EDT 04/12/2025 11:28 AM EDT us Rosanne Lange NP LAB BLOOD ORDERABLES Final Resul t [facility] [address] [place] [address] [phone] * Chlamydia/Trichomonas/Neisseria gonorrhoeae, PCR, Urine (02/13/2025 10:33 AM EDT) CT PCR, Urine NOT DETECTED Not Detect. [facility] Comment:A not detected test result [...] NG PCR, Urine NOT DETECTED Not Detect. [facility] Comment:A not detected test result [...] EDT 02/13/2025 2:03 PM EDT Rosanne Lange COAL PASSER LAB URINE ORDERABLES Final Resul t Performing Organization Address [facility]/ZIP Co de Phone Number [facility] [address] [place] [address] [phone] * HEPATITIS C AB W/REFL TO HCV RNA, QN, PCR (09/26/2021 12:00 AM EST) HEPATITIS C ANTIBODY NON-REACT ANIKET NON-REACT ANIKET [facility] INDEX 0.15 <1.00 [facility] Comment: HCV antibody was non-reactive. There is no laboratory evidence of HCV infection. In most cases, no further action is required. However, if recent HCV exposure is suspected, a test for HCV RNA (test code 51785) is suggested. For additional information please refer to http://education.Kareo/faq/OMG19q0 (This link is being provided for informational/ educational purposes only.) 09/26/2021 Yamilka Bone PLUMBER SUPERVISOR HISTORICAL/NON ORDERABLE LABS Final Result Performing Organization Address City/[facility]/ZIP Co de Phone Number [facility] [address] * CHLAMYDIA/N. GONORRHOEAE RNA, TMA, UROGENITAL (09/26/2021 12:00 AM EST) Chlamydia trachomatis RNA, TMA, Urogenital NOT DETECTED NOT DETECTED [facility] COMMENT SEE [facility] Comment: The analytical performance characteristics of this assay, when used to test SurePath(TM) specimens have been determined by [employer]. The modifications have not been cleared or approved by the FDA. This assay has been validated pursuant to the CLIA regulations and is used for clinical purposes. For additional information, please refer to https://education.Kareo/faq/VTO660 (This link is being provided for information/ educational purposes only.) Neisseria gonorrhoeae RNA, TMA, Urogenital NOT DETECTED NOT DETECTED [facility] 09/26/2021 YamilkaMEDOVENT PLUMBER SUPERVISOR HISTORICAL/NON ORDERABLE LABS Final Result Performing Organization Address [facility] de Phone Number [facility] [address] [place] [address], * HIV 1/2 ANTIGEN/ANTIBODY,FOURTH GENERATION W/RFL (09/26/2021 12:00 AM EST) Pathologist [facility] HIV-1/2 ANTIGEN AND ANTIBODIES, 4TH GENERATION W/ REFLEX NON-REACT ANIKET NON-REACT ANIKET [facility] Comment: HIV-1 antigen and HIV-1/HIV-2 [...] purpose. For additional information please refer to http://education.Kareo/faq/WGV673 (This link is being provided for informational/ educational purposes only.) The performance of this assay has not been clinically validated in patients less than 2 years old. 09/26/2021 LiqueoP LAB BLOOD ORDERABLES Final Res ult Performing Organization Address [facility] Co de Phone Number [facility] [address] [place] [address], [place] * HM PAP/HPV (03/28/2020 12:00 AM EDT) Pap Smear 1. NILM 1. NILM [facility] Narrative [facility] - 03/28/2020 12:00 AM EDT INCORRECT DATA CHART CORRECTION SUBMITTED us Historical Provider HEALTH MAINTENANCE Edited Result - Final [facility] [address] [place] [address] from Last 3 Months or Most Recently Relevant to Health Maintenance [facility] Care Teams Pocket Secretary Assembler Relationship Specialty Start Date End Date Rosanne Lange NP [address] [place] [phone] PCP - General Family Medicine 02/13/25
--- OUTSIDE RECORDS SUMMARY | 2025-05-09 21:14 | XMS_ITS | Encounter Summary ---
Author Organization [employer] Address [address] [place] [address] Care Team Providers Care Kindergarten Teacher Assistant Name Role Phone Rosanne Lange NP Primary Care Provider [phone] Reason for Visit * Reason Onset Date Comments Chart Prep 05/08/2025 Encounter Details Date Type Department Care Team ([facility] Contact Info) Description 05/08/2025 Telephone [facility] [address] [place] [address] Rosanne Lange NP [address] [place] [address] Chart Prep Social History Tobacco Use Types Packs/Day Years [...] encounter Miscellaneous Notes * Telephone Encounter - Carmen Zee MA - 05/08/2025 1:11 PM EDT Chart Prep Labs: done from 04/12/25 Images: not applicable Referrals: Bariatrics - Pt had an appointment on 05/04/25 appt was cancelled. Vaccines due: Covid, Flu, and MCV4 Screenings: HPV/Cotest, Chlamydia and Gonorrhea, LMP. Overdue care gaps: Tobacco documented in this encounter Plan of Treatment Upcoming Encounters Date Type Department Care Team (Late st Contact Info) Description 05/12/2025 9:00 AM EDT Office Visit [facility] OPTOMETRY [address] [place] [address] Román, Rina, OD [address] [place] [address] 07/18/2025 1:30 PM EST Office Visit [facility] [address] [place] [address] Rosanne Lange, JEFF [address] [place] [address] documented as of this encounter Visit Diagnoses Not on filedocumented in this encounter Additional Health Concerns Assessment Noted Time PHQ-9 Depression Total Score: 9 04/19/20 25 1:21 PM EDT documented as of this encounter Care Teams Kindergarten Teacher Assistant Relationship Specialty Start Date End Date Rosanne Lange NP [address] [place] [address] PCP - General Family Medicine 02/13/25 documented as of this encounter
[2025-05-10 05:51] LABS: CT PCR NOT DETECTED (Not Detect.); NG PCR NOT DETECTED (Not Detect.)
== END 2025-05-09 17:11 | disposition home or self-care (01) ==
LOC: HO.HHCLNP 17:10
PROVIDERS: Visit Provider Nurse Practitioner Family
DX: Z00.00 Encounter for general adult medical examination without abnormal findings (principal); Z12.4 Encounter for screening for malignant neoplasm of cervix; Z20.2 Contact with and (suspected) exposure to infections with a predominantly sexual mode of transmission
CPT/HCPCS: 87491; 87591; 88175

== ENCOUNTER 2025-06-12 08:10 | Outpatient (AMB) | payer MEDICAID, SELFPAY ==
--- OUTSIDE RECORDS SUMMARY | 2025-06-09 13:30 | XMS_ITS | Encounter Summary ---
Author Organization [employer] Address [address] [place] [address] 7 [place] [address] Care Team Providers Care Torch Operator Name Role Phone Rosanne Lange NP Primary Care Provider [phone] Reason for Referral * Consultation (Routine) - Authorized Specialty Diagnoses / Procedures Referred By Contclaus t Referred To Contact Sleep Medicine Diagnoses Obesity (BMI 35.0-39.9 without comorbidity) Snoring Rosanne Lange NP [address] [place] [address] Phone: tel: fax: Sleep Medicine Service [address], [address] [place] [address] Phone: tel: fax: Referral ID Status Reason Start Date Expiration Date Visits Requested Visits Authorized [id number] Authorized Specialty Services Required 06/09/2026 6 6 Encounter Details Date Type Department Care Team (Late st Contact Info) Description 06/09/2025 1:30 PM EST Office Visit [facility] [address] [place] [address] Rosanne Lange NP [address] [place] [address] Flexural eczema (Primary Dx); Bacterial vaginosis; Obesity (BMI 35.0-39.9 without comorbidity); Snoring Social History Tobacco Use Types Packs/Day Years [...] Sex Female 10:20 AM EDT Gender Identity Not Listed 05/19/2022 10:20 AM EDT Sexual Orientation Lesbian or Galeano 05/19/2022 10 :20 AM EDT documented as of this encounter Last Filed Vital Signs Vital Sign Reading Time Taken Comments Blood Pressure 132/86 06/09/2025 1:29 PM EST Pulse 100 06/09/2025 1:29 PM EST Temperature 36.7 C (98 F) 06/09/2025 1:29 PM EST Respiratory Rate 18 06/09/2025 1:29 PM EST Oxygen Saturation 98% 06/09/2025 1:29 PM EST Inhaled Oxygen Concentration - - Weight 145 kg (319 lb 6.4 oz) 06/09/2025 1:29 PM EST Height - - Body Mass Index 57.49 05/09/2025 1:04 PM EDT documented in this encounter Progress Notes * Rosanne Lange NP - 06/09/2025 1:30 PM EST Davon Duron, age 24 years - Eczema flares every winter, worsening with cold and dry air - Current eruption described as largest to date, rash present on back, breast, and arm - Itching relieved by lotion, no itching in belly - Previous use of topical creams including betamethasone and Kenalog, reported inadequate response - Daughter also has eczema - Vaginal discharge described as liquid, reynaga-green, with concern for bacterial vaginosis; never experienced previously - Denies itching in belly - Reports loud snoring - Actively drinking increased amounts of water at work - Expressed interest in checking blood sugar and thyroid due to concern for possible prediabetes - Scheduled appointment with surgeon upcoming, considering medical options over surgery Problem List[1] Medical History[2] Allergies[3] Review of Systems Genitourinary: Positive for dysuria and vaginal discharge. Skin: Positive for rash. Psychiatric/Behavioral: Negative for decreased concentration and sleep disturbance. BP 132/86 (BP Location: Left arm, Patient Position: Sitting, BP Cuff Size: Thigh) Pulse 100 Temp 98 ??F (36.7 ??C) (Temporal) Resp 18 Wt 319 lb 6.4 oz (145 kg) SpO2 98% BMI 57.49 kg/m?? Physical Exam Vitals reviewed. Constitutional: Appearance: Davon is obese. HENT: Head: Normocephalic and atraumatic. Nose: Nose normal. Eyes: Conjunctiva/sclera: Conjunctivae normal. Cardiovascular: Rate and Rhythm: Normal rate and regular rhythm. Pulmonary: Effort: Pulmonary effort is normal. Breath sounds: Normal breath sounds. Musculoskeletal: Cervical back: Normal range of motion and neck supple. Skin: Findings: Erythema and rash present. Neurological: General: No focal deficit present. Mental Status: Davon is alert. - SKIN: Erythematous rash observed on the back, breast, and arm. Results: No visits with results within 28 Day(s) from this visit. Latest known visit with results is: Procedure Visit on 05/09/2025 Component Date Value Ref Range Status CT PCR 05/09/2025 NOT DETECTED Not Detect. Final A not detected test result does not exclude the possibilityof infection because test results can beaffected byimproper specimen collection, concurrent antibiotic therapy,or the number of organisms in the specimen which may bebelow the sensitivity of the test. As with many diagnostictests, results from the Xpert CT/NG assay should beinterpreted in conjunction with other laboratory andclinical data available to the clinician.Xpert CT/NG performance has not been evaluated in patientsless than 14 years of age. The assay should not be used forthe evaluationof suspected sexual abuse or for other medico-legalindications. Additional testing is recommended in anycircumstance when false positive or f alse negative resultscould lead to adverse medical, social or psychologicalconsequences. NG PCR 05/09/2025 NOT DETECTED Not Detect. Final A not detected test result does not exclude the possibilityof infection because test results can beaffected byimproper specimen collection, concurrent antibiotic therapy,or the number of organisms in the specimen which may bebelow the sensitivity of the test. As with many diagnostictests, results from the Xpert CT/NG assay should beinterpreted in conjunction with other laboratory andclinical data available to the clinician.Xpert CT/NG performance has not been evaluated in patientsless than 14 years of age. The assay should not be used forthe evaluationof suspected sexual abuse or for other medico-legalindications. Additional testing is recommended in anycircumstance when false positive or f alse negative resultscould lead to adverse medical, social or psychologicalconsequences. Assessment & Plan Flexural eczema Orders: triamcinolone (Kenalog) 0.1 % cream; Apply topically 2 times daily. Bacterial vaginosis Obesity (BMI 35.0-39.9 without comorbidity) Orders: Comprehensive Metabolic Panel; Future CBC auto differential; Future Hemoglobin A1c; Future Referral to Sleep Medicine; Future Snoring Orders: Referral to Sleep Medicine; Future Assessment & Plan Flexural eczema: - Flexural eczema with significant pruritus and extensive rash, exacerbated during winter. - Prescribed clobetasol cream, to be applied twice daily to affected areas for acute flares. Prescribed betamethasone 0.05% cream for strong anti-inflammatory effect, with instructions to use only for severe flares and not on the face. Prescribed triamcinolone cream for day-to-day management and milder symptoms. Advised to mix creams with lotion and to hydrate skin regularly. Instructed to avoid daily use of strong topical steroids and to give skin breaks from medication. Advised to return for evaluation if rash does not improve within 2 weeks or if symptoms worsen. - Risks and side effects: Discussed risk of side effects with strong topical steroids. Bacterial vaginosis: - Bacterial vaginosis diagnosed based on symptoms of vaginal discharge and odor. - Prescribed vaginal cream to be inserted nightly for 7 nights, with instructions on application and use of loose cotton underwear or panty liner due to leakage. Advised to return for further evaluation if symptoms worsen or do not resolve. Obesity (BMI 35.0-39.9 without comorbidity): - Obesity discussed as a concern, with consideration of medical and surgical options for weight management. - Advised to maintain appointment with surgeon for further discussion of medical options. Discussedpossible referral to sleep medicine to evaluate for sleep apnea, which may impact eligibility for certain weight management medications. Encouraged hydration. - Risks and side effects: Discussed potential risks of stimulant medications, including anxiety andinsomnia. Snoring: - Snoring reported, possible consideration of sleep apnea. - Placed referral to sleep medicine for evaluation of sleep-disordered breathing and possible sleepapnea. Prescription - Clobetasol propionate 0.05% cream: apply to affected areas twice daily, avoid facial application;limited supply due to potency; if no improvement in 2 weeks, reassess for alternative therapies - Triamcinolone acetonide cream (mild): for day-to-day maintenance or as needed once flare subsides; may mix with regular lotion - Metronidazole vaginal cream: one applicatorful inserted intravaginally at bedtime for 7 consecutive nights; wear loose cotton underwear or panty liner due to potential leakage Appointments - Referral to sleep medicine for evaluation Current Medications[4] Based on our discussion, I have outlined the following instructions for you: - When you have a bad flare-up of your skin rash, apply clobetasol cream to the affected areas two times a day. - Only use betamethasone 0.05% cream for very severe flare-ups, and do not use it on your face. - For everyday care and milder symptoms, use triamcinolone cream. - Mix your creams with lotion before putting them on, and keep your skin well moisturized. - Do not use strong steroid creams every day. Give your skin breaks from these medications. - Use the vaginal cream by inserting it at night for 7 nights. You may want to wear loose cotton underwear or a panty liner because the cream can leak out. - Drink plenty of water to stay hydrated. - If your symptoms do not get better within 2 weeks or if they get worse, come back for another check-up. Next appointment(s): - Referral to sleep medicine for evaluation Thank you again for your visit, and [...] gestational diabetes mellitus, not currently Morbid obesity ([facility]) ([facility]) Current episode of major depressive disorder without prior episode Moderate episode of recurrent major depressive disorder ([facility]) ([facility]) Cervical cancer screening Flexural eczema Bacterial vaginosis Obesity (BMI 35.0-39.9 without comorbidity) [2] Past Medical History: Diagnosis Date Bipolar affective disorder ([facility]) ([facility]) [3] No Known Allergies [4] Current Outpatient Medications: betamethasone, augmented, (Diprolene AF) 0.05 % cream, Apply topically 2 times daily., Disp: 30 g, Rfl: 1 buPROPion XL (Wellbutrin XL) 300 MG 24 [...] bedtime (insomnia)., Disp: 30 tablet, Rfl: 2 metroNIDAZOLE (Metrogel) 0.75 % vaginal gel, Insert into the vagina at bedtime for 7 days., Disp: 70 g, Rfl: 0 triamcinolone (Kenalog) 0.1 % cream, Apply topically 2 times daily., Disp: 30 g, Rfl: 2 documented in this encounter Miscellaneous Notes * Assessment & Plan Note - Rosanne Lange NP - 06/09/2025 1:30 PM ESTAssociated Problem(s): Flexural eczema Orders: triamcinolone (Kenalog) 0.1 % cream; Apply topically 2 times daily. * Assessment & Plan Note - Rosanne Lange NP - 06/09/2025 1:30 PM ESTAssociated Problem(s): Bacterial vaginosis * Assessment & Plan Note - Rosanne Lange NP - 06/09/2025 1:30 PM ESTAssociated Problem(s): Obesity (BMI 35.0-39.9 without comorbidity) Orders: Comprehensive Metabolic Panel; Future CBC auto differential; Future Hemoglobin A1c; Future Referral to Sleep Medicine; Future documented in this encounter Plan of Treatment Upcoming Encounters Date Type Department Care Team (Late st Contact Info) Description 07/18/2025 1:30 PM EST Office Visit [facility] [address] [place] [address] Rosanne Lange NP [address] [place] [address] Scheduled Orders Name Type Priority Associated Diagnoses Orde r Schedule Comprehensive Metabolic Panel Lab Routine Obesity (BMI 35.0-39.9 without comorbidity) Expected: 06/09/2025 (Approximate), Expires: 06/09/2026 CBC auto differential Lab Routine Obesity (BMI 35.0-39.9 without comorbidity) Expected: 06/09/2025 (Approximate), Expires: 06/09/2026 Hemoglobin A1c Lab Routine Obesity (BMI 35.0-39.9 without comorbidity) Expected: 06/09/2025 (Approximate), Expires: 06/09/2026 Scheduled Referrals Name Type Priority Associated Diagnoses Orde r Schedule Referral to Sleep Medicine Outpatient Referral Routine Obesity (BMI 35.0-39.9 without comorbidity) Snoring Expected: 06/09/2025 (Approximate), Expires: 06/09/2026 documented as of this encounter Visit Diagnoses Diagnosis Flexural eczema- Primary Other atopic dermatitis and related conditions Bacterial vaginosis Unspecified vaginitis and vulvovaginitis Obesity (BMI 35.0-39.9 without comorbidity) Snoring Other dyspnea and respiratory abnormality documented in this encounter Additional Health Concerns Assessment Noted Time PHQ-9 Depression Total Score: 9 04/19/20 25 1:21 PM EDT documented as of this encounter Care Teams Torch Operator Relationship Specialty Start Date End Date Rosanne Lange NP [address] [place] [id number] PCP - General Family Medicine 02/13/25 documented as of this encounter
--- OUTSIDE RECORDS SUMMARY | 2025-06-12 08:18 | XMS_ITS | Encounter Summary ---
Author Organization [employer] Address [address] [place] [address] Care Team Providers Care Ore Washer Name Role Phone Arsalan Halie GERBERP Primary Care Provider [phone] Rosanne Lange NP Primary Care Provider [phone] Encounter Details Date Type Department Care Team (Late st Contact Info) Description 07/04/2024 Orders Only [facility] [address] [place] [address] Klarissa Pinon Social History Tobacco Use Types Packs/Day Years Used Date Smoking Tobacco: Never Smokeless Tobacco: Never Alcohol Use Standard Drinks/Week Comments Yes 0 (1 standard drink = 0.6 oz pur e alcohol) Occasionally Housing Stability Answer Date Recorded What is your housing situation today? I do not have housing (Staying with others, in a hotel, in a fci, living outside on the street, on a [...] t he electric, gas, oil or water [employer] threatened to shut off services in your [...] Description 07/18/2025 1:30 PM EST Office Visit [facility] MED[facility] [address] [place], [place] [phone] Rosanne Laneg NP [address] [place], [place] [phone] documented as of this encounter Procedures Procedure Name Priority Date/Time Associated Diagnosis Comments CHLAMYDIA/TRICHOMON /NEISSERIA GONORRHOEAE, PCR, URINE Routine 02/13/2025 10:33 AM EDT HM PAP/HPV Routine 03/28/2020 12:00 AM EDT documented in this encounter Results * Chlamydia/Trichomonas/Neisseria gonorrhoeae, PCR, Urine (02/13/2025 10:33 AM EDT) CT PCR, Urine NOT DETECTED Not Detect. [facility] Comment:A not detected test result [...] NG PCR, Urine NOT DETECTED Not Detect. [facility] Comment:A not detected test result [...] NP LAB URINE ORDERABLES Final Resul t [facility] [address] [place] [address] [phone] * HM PAP/HPV (03/28/2020 12:00 AM EDT) Pap Smear 1. NILM 1. NILM [facility] Narrative [facility] - 03/28/2020 12:00 AM EDT INCORRECT DATA CHART CORRECTION SUBMITTED Historical Provider HEALTH MAINTENANCE Edited Result - Final Performing Organization Address City/[facility]/ZIP Co de Phone Number [facility] [address] [place] [phone] documented in this encounter Visit Diagnoses Not on filedocumented in this encounter Care Teams Ore Washer Relationship Specialty Start Date End Date Halie Arriaza FNP [address] [place] [address] PCP - General Family Medicine 03/13/22 10/18/24 Rosanne Lange NP [address] [place] [address] PCP - General Family Medicine 02/13/25 documented as of this encounter
--- OUTSIDE RECORDS SUMMARY | 2025-06-12 08:18 | XMS_ITS | Encounter Summary ---
Author Organization [employer] Address [address] [place] [address] [place] [address] Care Team Providers Care Creative Services Coordinator Name Role Phone Halie Arriaza Primary Care Provider [phone] Rosanne Lange NP Primary Care Provider [phone] Encounter Details Date Type Department Care Team (Late Contact Info) Description 02/17/2023 [facility] [employer] Information Management [address] [place] [address] Halie Arriaza FNP [address] [place], [place] [phone] Social History Tobacco Use Types Packs/Day Years [...] Department Care Team (Late Contact Info) Description 07/18/2025 1:30 PM EST Office Visit [facility] [address] [place] [address] Rosanne Lange NP [address] [place] [address] documented as of this encounter Visit Diagnoses Not on filedocumented in this encounter Care Teams Creative Services Coordinator Relationship Specialty Start Date End Date Halie Arriaza FNP [address] [place] [address] PCP - General Family Medicine 03/13/22 10/18/24 Rosanne Lange NP [address] [place] [address] PCP - General Family Medicine 02/13/25 documented as of this encounter
--- OUTSIDE RECORDS SUMMARY | 2025-06-12 08:19 | XMS_ITS | Encounter Summary ---
Author Organization [employer] Address [address] [facility] [address] [place] [address] Care Team Providers Care Paper Latcher Name Role Phone Rosanne Lange NP Primary Care Provider [phone] Encounter Details Date Type Department Care Team (Latest Contact Info) Description 06/09/2025 Travel Social History Tobacco Use Types Packs/Day [...] Description 07/18/2025 1:30 PM EST Office Visit [facility] MED[facility]INE [address] [place] [address] Rosanne Lange NP [address] [place] [address] documented as of this encounter Visit Diagnoses Not on filedocumented in this encounter Additional Health Concerns Assessment Noted Time PHQ-9 Depression Total Score: 9 04/19/20 1:21 PM EDT documented as of this encounter Care Teams Paper Latcher Relationship Specialty Start Date End Date Rosanne Lange NP [address] [place] [address] PCP - General Family Medicine 02/13/25 documented as of this encounter
--- OUTSIDE RECORDS SUMMARY | 2025-06-12 08:19 | XMS_ITS | Clinical Summary ---
Author Organization [employer] Address [address] [facility] 7t [place] [address] Care Team Providers Care Flex O Writer Operator Name Role Phone Rosanne Lange NP Primary Care Provider Allergies No known active allergies Medications * This document contains information received from the source organization and may not represent a complete record from that organization. Dulaglutide (Trulicity) 0.75 MG/0.5ML solution auto-injectorIn dications:Morbi d obesity (CMS/HCC) (HCC) Inject 0.75 mg under the skin 1 (one) time per week for 28 days. 2 mL 5 Active melatonin 5 MG tabletIndicatio ns:Drug-induced insomnia (CMS/HCC) (HCC) Take 1 tablet (5 mg) by mouth if needed at bedtime (insomnia). 30 tablet 2 5 07/19/20 25 Active buPROPion XL (Wellbutrin XL) 300 MG 24 hr tablet Take 1 tablet (300 mg) by mouth Once per day. Do not crush, chew, or split. 30 tablet 2 5 05/09/20 26 Active betamethasone, augmented, (Diprolene AF) 0.05 % cream Apply topically 2 times daily. 30 g 1 06/09/2025 5:30 PM EST 5 Active triamcinolone (Kenalog) 0.1 % creamIndication s:Flexural eczema Apply topically 2 times daily. 30 g 2 06/09/2025 4:29 PM EST 5 07/09/20 25 Active metroNIDAZOLE (Metrogel) 0.75 % vaginal gel Insert into the vagina at bedtime for 7 days. 70 g 06/09/2025 4:29 PM EST 08/18/19 Active Active Problems Problem Noted Date Diagnosed Date Flexural eczema 06/09/2025 Assessment & Plan (06/09/2025 1:52 PM EST): Orders: triamcinolone (Kenalog) 0.1 % cream; Apply topically 2 times daily. Bacterial vaginosis 06/09/2025 Assessment & Plan (06/09/2025 1:52 PM EST): Obesity (BMI 35.0-39.9 without comorbidity) 05/21 Assessment & Plan (06/09/2025 1:52 PM EST): Orders: Comprehensive Metabolic Panel; Future CBC auto differential; Future Hemoglobin A1c; Future Referral to Sleep Medicine; Future Cervical cancer screening 05/09/2025 Assessment & Plan (05/09/2025 4:31 PM EDT): Orders: Pap Smear Chlamydia/N. Gonorrhoeae RNA, TMA, Vaginal Moderate episode of recurren t major depressive disorder ([facility]) 04/18/2025 Morbid obesity ([facility]) 04/14/2025 Assessment & Plan (04/14/2025 2:19 PM [...] organization. Date Type Department Care Team Description 06/09/2025 1:30 PM EST Office Visit [address] [address] Rosanne Lange NP Flexural eczema (Primary Dx); Bacterial vaginosis; Obesity (BMI 35.0-39.9 without comorbidity); Snoring 06/09/2025 Travel 06/08/[address] [address] Rosanne Lange NP Chart Prep 06/08/[address] [address] Rosanne Lange NP Nurse Triage 05/12/2025 9:00 AM EDT Office Visit [facility] OPTOMETRY [address] [place] [phone] Román, Rina, OD Myopia of both eyes (Primary Dx); Generalized headaches 05/12/2025 Travel 05/09/2025 1:00 PM EDT Procedure Visit [address] [address] Rosanne Lange NP Cervical cancer screening (Primary Dx); Current moderate episode of major depressive disorder without prior episode (CMS/HCC) (HCC) 05/09/2025 Travel 05/08/[address] [address] Rosanne Lange NP Chart Prep 05/05/2025 Patient Outreach [facility] MED & PEDS [address] [place], [place] [phone] Rosanne Lange NP Pre-visit Planning (SDOH unable to reach LVM) 04/20/2025 Orders Only [address] [address] Rosanne Lange NP Drug-induced insomnia (CMS/HCC) (HCC) (Primary Dx) 04/18/2025 Travel 04/14/2025 11:15 AM EDT Office Visit [address] [address] Rosanne Lange, JEFF Morbid obesity (CMS/HCC) (Primary Dx); Current episode of major depressive disorder without prior episode, unspecified depression episode severity 04/14/2025 Travel 04/11/2025 Telephone [facility] MEDICINE [address] [place] [address] Rosanne Lange, JEFF Medication Question from Last 3 Months Immunizations Immunization Administration [...] 6.4 oz) 06/09/2025 1:29 PM EST Height 158.8 cm (5' 2.5 ) 05/09/2025 1:04 PM EDT Body Mass Index 57.49 05/09/2025 1:04 PM EDT Plan of Treatment Upcoming Encounters Date Type Department Care Team (Late st Contact Info) Description 07/18/2025 1:30 PM EST Office Visit [facility] MEDICINE [address] [place], [place] [phone] Rosanne Lange, JEFF [address] [place], [place] [phone] Health Maintenance Due Date Last Done Comments Family Planning (PISQ) 2016 HPV/Cotest 03/28/2023 COVID-19 Vaccine ( season) 2025 09/18/2021, 12/13/2020, 11/15/2020 Influenza Vaccine (#1) 2025 8, 07/28/2017, 06/13/2015, Additional history exists Depression Monitoring 10/18/2025 04/19/2025, 025 Alcohol/Substance Use Screening 02/13/2026 02/13/2025 Disability Screening 02/13/2026 02/13/2025 SDOH Screening 02/13/2026 02/13/2025 Tobacco Screening 06/09/2026 06/09/2025 Pap Smear 05/09/2028 05/09/2025, 03/28/2020 Lipid Panel 04/12/2030 04/12/2025, 09/26/2021 DTaP/Tdap/Td Vaccines [...] on patient's age to complete this topic Meningococcal B Vaccine Aged Out No l onger eligible based on patient's age to complete this topic RSV under 20 months Aged Out No longe r eligible based on patient's age to complete this topic Rotavirus Vaccines Aged Out No longer eligible based on patient's age to complete this topic Procedures Procedure Name Priority Date/Time Associated Diagnosis Comments CHLAMYDIA/N. GONORRHOEAE RNA, TMA, UROGENITAL Routine 05/09/2025 1:36 PM EDT Cervical cancer screening PAP SMEAR Routine 05/09/2025 Cervical cancer screening HEMOGLOBIN A1C Routine 04/12/2025 8:16 AM EDT Morbid obesity (CMS/HCC) LIPID PANEL, STANDARD Routine 04/12/2025 8:06 AM EDT Morbid obesity (CMS/HCC) COMPREHENSIVE METABOLIC PANEL Routine 04/12/2025 8:06 AM EDT Morbid obesity (CMS/HCC) ZZZ HISTORICAL HEPATITIS C AB W/REFL TO HCV RNA, QN, PCR Routine 09/26/2021 12:00 AM EST HIV 1/2 ANTIGEN/ANTIBODY, FOURTH GENERATION W/RFL Routine 09/26/2021 12:00 AM EST from Last 3 Months or Most Recently Relevant to Health Maintenance Results * Chlamydia/N. Gonorrhoeae RNA, TMA, Vaginal (05/09/2025 1:36 PM EDT) CT PCR NOT DETECTED Not Detect. [facility] Comment:A not detected test result [...] adverse medical, social or psychologicalconsequences. NG PCR NOT DETECTED Not Detect. [facility] Comment:A not detected test result [...] lead to adverse medical, social or psychologicalconsequences. Swab 05/09/2025 1:36 PM EDT 05/09/2025 5:09 PM EDT us Rosanne Lange NP LAB MICROBIOLOGY - GENERAL ORDER SANJAUNITA Final Result [facility] [address] [place] [phone] * Pap Smear (05/09/2025) Swab 05/09/2025 05/10/2025 6:1 5 AM EDT [facility] - 05/12/2025 9:10 AM EDT ----- ------- Name: Davon Dodd Age/Sex: : 2000 Unit#: [id number] Attend Dr: Rosanne Lange LIAISON INSPECTION LABORATORY ASSISTANT Re05/09/25 Status: [facility] Disch: ----- ------- SPEC : [id number] RECD: 05/10/25 STATUS: KARL SLADE NUM: [id number] DAVID: 05/09/25- SUBM DR: Rosanne Lange LIAISON INSPECTION LABORATORY ASSISTANT ENTERED: 05/10/25 SP TYPE: Pap Smr OT : ORDERED: Pap Smear Interpretation Satisfactory for evaluation. Negative for intraepithelial lesion or malignancy. Coccobacilli consistent with shift in vaginal ariane. Clinical Information LMP: Previous PAP test: NILM 2019 Other surgery: Other history: Material Received ThinPrep-Cervical PAP Disclaimer As of May 11, 2024, the technical services to include automated prescreening performed by the ThinPrep Imaging System, PAP screening and HPV testing will be performed at [facility] (IA #[id number]), [address] [place] [phone]. Testing for HPV was performed using the Kelsy RICKY 6800 system. The presence of HPV in the female genital tract is associated with a number of diseases, including cervical carcinoma. The HPV DNA high risk pool tests for HPV 31, 33, 35, 39, 45, 51, 52, 56, 58, 59, 66 and 68. The testing for HPV 16 and 18 genotypes has also been performed. A positive result indicates detection of nucleic acid sequences from one or more subtypes, whereas a negative result indicates such sequences were not detected. All professional services are performed by [facility] ([address] [place] [address], [place] [address]; ; CLIA #[id number]). The PAP Test is a screening procedure with the inherent possibility of both false negative and false positive results. Results should be interpreted in the context of historic and current clinical findings. Reliability of the PAP Test is enhanced by performing the test on a regular repetitive basis. ----- ------- Signed (signature on file) JUAN DAVID Arriola (ASCP) 05/12/25 0910 ----- ------- END OF REPORT us Rosanne Lange NP LAB CYTOLOGY ORDERABLES Final Re sult [facility] [address] [place] [address] [place] [phone] * Hemoglobin A1c (04/12/2025 8:16 AM EDT) Hemoglobin A1c 5.5 <6.0 % [facility] Comment:Hemoglobin A1C Refer ence Range Adults: 4.8 - 6.0 % Non diabetic: < 6.0 % Goal: < 7.0 %Additional Action Suggested: > 8.0 %Note: Hemoglobin A1c results are invalid for patients with abnormal amounts of HbF. Blood transfusions may impact the HbA1c concentration in the patient sample. Estimated Average Glucose 111 mg/dL [facility] Comment:eAG = Estimated ave rage glucose which is %A1C expressed asaverage glucose, using the formula of the Z2X-XbzygcmItrplce Glucose study (ADAG), Diabetes Care, Vol.31,#8,Feb. 2007 Blood Venous blood specimen / Unknown 04/12/2025 8:16 AM EDT 04/12/2025 11:28 AM EDT us Rosanne Lange NP LAB BLOOD ORDERABLES Final Resul t [facility] [address] [place] [phone] * (ABNORMAL) Lipid Panel, Standard (04/12/2025 8:06 AM EDT) Triglycerides 141 <150 mg/dL [facility] Comment:Desirable Triglyceri de: less than 150 mg/dLBorderline High Triglyceride 150-199 mg/dLHigh Triglyceride: 200-499 mg/dLVery High Triglyceride: greater than or equal to 5OO mg/dL Cholesterol 133 <200 mg/dL [facility] Comment:Desirable Cholestero l: less than 200 mg/dLBorderline High Cholesterol: 200-239 mg/dLHigh Cholesterol: greater than 239 mg/dL LDL Cholesterol Calculated 72 <100 mg/dL [facility] Comment:Desirable LDL: less than 100 mg/dLNear Optimal/Above Optimal LDL: 110- 129 mg/dLBorderline High LDL: 130-159 mg/dLHigh LDL: 160-189 mg/dLVery High LDL: greater than or equal to 190 mg/dL HDL Cholesterol 33(L) >40 mg/dL [facility] Comment:Desirable HDL: great er than 40 mg/dL Note: This HDL assay may give artificially low results in patients with liver disease. Blood Venous blood specimen / Unknown 04/12/2025 8:06 AM EDT 04/12/2025 11:28 AM EDT us Rosanne Lange LIAISON INSPECTION LABORATORY ASSISTANT LAB BLOOD ORDERABLES Final Resul t [facility] [address] [place], [place] [phone] * (ABNORMAL) Comprehensive Metabolic Panel (04/12/2025 8:06 AM EDT) Sodium 140 135 - 145 mmol/L [facility] Potassium 4.2 3.3 - 5.1 mmol/L [facility] Chloride 108 96 - 108 mmol/L [facility] Carbon Dioxide 28 22 - 29 mmol/L [facility] Anion Gap 8(L) 12 - 20 [facility] Urea Nitrogen (BUN) 10 9 - 16 mg/dL [facility] Creatinine, Serum 0.77 0.5 - 1.4 mg/dL [facility] Estimated Glomerular Filt Rate >60 [facility] Comment:Chronic Kidney Disea se: Estimated GFR < 60 mL/min/1.03d5Puxjxh Kidney Disease: Estimated GFR < 15 mL/min/1.73m2 Glucose 107 60 - 115 mg/dL [facility] Calcium 8.5 8.4 - 10.2 mg/dL [facility] Bilirubin, Total 0.3 0.0 - 1.0 mg/dL [facility] Aspartate Amino Transferase 25 5 - 31 U/L [facility] Alanine Aminotransferase 17 0 - 31 U/L [facility] Total Protein 7.0 6.5 - 8.0 g/dL [facility] Albumin Level 3.8 3.5 - 5.0 g/dL [facility] Alkaline Phosphatase 83 39 - 117 U/L [facility] Blood Venous blood specimen / Unknown 04/12/2025 8:06 AM EDT 04/12/2025 11:28 AM EDT Rosanne Nazario LIAISON INSPECTION LABORATORY ASSISTANT LAB BLOOD ORDERABLES Final Resul t [facility] [address] [place] [phone] * HEPATITIS C AB W/REFL TO HCV RNA, QN, PCR (09/26/2021 12:00 AM EST) HEPATITIS C ANTIBODY NON-REACT ANIKET NON-REACT ANIKET [facility] INDEX 0.15 <1.00 [facility] Comment: HCV antibody was non-reactive. There is no laboratory evidence of HCV infection. In most cases, no further action is required. However, if recent HCV exposure is suspected, a test for HCV RNA (test code 49657) is suggested. For additional information please refer to http://education.[employer]/faq/DGM15i7 (This link is being provided for informational/ educational purposes only.) 09/26/2021 Yamilka Bone COMPUTER SUPPORT ANALYST HISTORICAL/NON ORDERABLE LABS Final Result [facility] [address] * HIV 1/2 ANTIGEN/ANTIBODY,FOURTH GENERATION W/RFL (09/26/2021 12:00 AM EST) HIV-1/2 ANTIGEN AND ANTIBODIES, 4TH GENERATION W/ REFLEX NON-REACT ANIKET NON-REACT ANIKET [facility] Comment: HIV-1 antigen and HIV-1/HIV-2 [...] purpose. For additional information please refer to http://education.[employer]/faq/XMZ072 (This link is being provided for informational/ educational purposes only.) The performance of this assay has not been clinically validated in patients less than 2 years old. 09/26/2021 us Yamilka Bone COMPUTER SUPPORT ANALYST LAB BLOOD ORDERABLES Final Res ult [facility] [address] from Last 3 Months or Most Recently Relevant to Health Maintenance Insurance [facility] C3 Care Teams Flex O Writer Operator Relationship Specialty Start Date End Date Rosanne Lange NP [address] [place] [phone] PCP - General Family Medicine 02/13/25
--- OUTSIDE RECORDS SUMMARY | 2025-06-12 08:19 | XMS_ITS | Encounter Summary ---
Author Organization [employer] Address [address] [facility] 7t [place] [address] Care Team Providers Care Black Top Roller Name Role Phone Rosanne Lange NP Primary Care Provider [phone] Reason for Visit * Reason Onset Date Comments Chart Prep 06/08/2025 Encounter Details Date Type Department Care Team ([facility] Contact Info) Description 06/08/2025 Telephone [facility] MEDICINE [address] [place] [address] Rosanne Lange NP [address] [place] [address] Chart Prep Social History Tobacco Use Types [...] Telephone Encounter - Carmen Zee MA - 06/08/2025 2:57 PM EST Chart Prep Labs: done from 05/09/25 Images: not applicable Referrals: Bariatrics - Pt had an appointment on 05/04/25 appt was cancelled. Vaccines due: Covid, Flu, and MCV4 Screenings: LMP and HPV/Cotest. Overdue care gaps: Tobacco documented in this encounter Plan of Treatment Upcoming Encounters Date Type Department Care Team (Late st Contact Info) Description 07/18/2025 1:30 PM EST Office Visit [facility] MEDICINE [address] [place] [address] Rosanne Lange NP [address] [place] [address] documented as of this encounter Visit Diagnoses Not on filedocumented in this encounter Additional Health Concerns Assessment Noted Time PHQ-9 Depression Total Score: 9 04/19/20 1:21 PM EDT documented as of this encounter Care Teams Black Top Roller Relationship Specialty Start Date End Date Rosanne Lange NP [address] [place] [address] PCP - General Family Medicine 02/13/25 documented as of this encounter
--- OUTSIDE RECORDS SUMMARY | 2025-06-12 08:19 | XMS_ITS | Encounter Summary ---
Author Organization [employer] Address [address] 7[address] [place] [address] Care Team Providers Care Enrollment Representative Name Role Phone Rosanne Lange NP Primary Care Provider [phone] Reason for Visit * Reason Onset Date Comments Prior Authorization 02/28/2025 Encounter Details Date Type Department Care Team ([facility] Contact Info) Description 02/28/2025 Telephone [facility] MEDICINE [address] [place] [address] Rosanne Lange NP [address] [place] [address] Prior Authorization Social History Tobacco Use Types [...] Description 07/18/2025 1:30 PM EST Office Visit [facility] MEDICINE [address] [place] [address] Rosanne Lange NP [address] [place] [address] documented as of this encounter Visit Diagnoses Not on filedocumented in this encounter Additional Health Concerns Assessment Noted Time PHQ-9 Depression Total Score: 6 02/14/20 25 10:24 AM EDT documented as of this encounter Care Teams Enrollment Representative Relationship Specialty Start Date End Date Rosanne Lange NP [address] [place] [phone] PCP - General Family Medicine 02/13/25 documented as of this encounter
--- OUTSIDE RECORDS SUMMARY | 2025-06-12 08:19 | XMS_ITS | Encounter Summary ---
Author Organization [employer] Address [address] [facility] 7t [place] [address] Care Team Providers Care Tour Coordinator Name Role Phone Rosanne Lange NP Primary Care Provider [phone] Reason for Visit * Reason Onset Date Comments Nurse Triage 06/08/2025 Encounter Details Date Type Department Care Team ([facility] st Contact Info) Description 06/08/2025 Telephone [facility] MEDICINE [address] [place] [address] Rosanne Lange NP [address] [place] [address] Nurse Triage Social History Tobacco Use Types Packs/Day Years [...] encounter Miscellaneous Notes * Telephone Encounter - Monika Harris RN - 06/08/2025 1:46 PM EST Return call to pt, pt had called triage line to report worsening eczema of back and arms. Appt scheduled with Rosanne Lange NP at 2:30 pm 06/09. Protocol Used: No Protocol Available (Adult) Protocol-Based Disposition: See in Office or Video Visit Today Video visit not offered Positive Triage Question: * Patient wants to be seen * All higher-acuity triage questions were negative. Care Advice Discussed: * Reasons To Call Back - You become worse * Telephone Encounter - Carlos Gill - 06/08/2025 11:34 AM EST Symptom: Eczema - Caller Reports Outcome: Schedule an appointment to be seen within 3 days Reason: Caller denied all higher acuity questions The caller accepted this outcome. Duration 2x weeks Call Ext [phone] ([facility] Employee) documented in this encounter Plan of Treatment Upcoming Encounters Date Type Department Care Team (Late st Contact Info) Description 07/18/2025 1:30 PM EST Office Visit [facility] MEDICINE [address] [place] [address] Rosanne Lange NP [address] [place] [address] documented as of this encounter Visit Diagnoses Not on filedocumented in this encounter Additional Health Concerns Assessment Noted Time PHQ-9 Depression Total Score: 9 04/19/20 1:21 PM EDT documented as of this encounter Care Teams Tour Coordinator Relationship Specialty Start Date End Date Rosanne Lange NP [address] [place] [address] PCP - General Family Medicine 02/13/25 documented as of this encounter
--- NOTE | 2025-06-12 09:18 | MHC.OFFVISWM ---
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 BMI 54.5 Allergies No Known Allergies (No Known Allergies*) Allergy (Verified 06/12/25 09:18) Medication List - Last Reconciled 06/12/25 by Jose Antonio Lawton MD bupropion HCl XL (Wellbutrin XL) 150 mg PO QAM melatonin 5 mg PO BEDTIME PRN HPI HPI [employer] CLAIMS ANALYST SWL/MWL BMI 54.5: Details: Start time: 9.10am, End time: 10.10am ?I spent 55 minutes speaking with the patient on the phone plus an additional 5 minutes reviewing and updating records for a total of 60 minutes HPI Comments Details: Previous weight loss efforts: self diet and exercise Breakfast: skips Lunch: 12pm (fast food, rice) Dinner: 7pm (rice, beans, chicken, pork) Snacks: (10am (Oatmeal), 8-9pm (chips, or fruits) Exercise: none Beverages: Coffee: none, Tea: none, Soda: Sprite, Coke, Pepsi: daily, Juice: 3/wk, ETOH: none, PFSH Medical History (Updated 06/12/25 @ 09:20 by Jose Antonio Lawton MD) DJD (degenerative joint disease) Morbid obesity Obesity Bipolar 1 disorder Anxiety with depression Diabetes in Family History (Updated 05/04/25 @ 14:29 by Hakan Melendez CNA) Father Diabetes Bipolar 1 disorder Anxiety with depression Obesity Mother Anxiety with depression Bipolar 1 disorder High blood pressure Social History (Updated 05/04/25 @ 14:31 by Hakan Melendez CNA) Alcohol intake: current Alcohol intake frequency: holidays/special occasions only Alcohol type: hard liquor Patient Tobacco Use Status: Never used Tobacco Substance Use Type: Marijuana Telehealth Telehealth Telehealth Platform: Telephone Location of provider rendering services: practice address Location of patient: address on file Patient Identification confirmed using: Name, : Yes Telehealth method: voice only Patient verbally consented to treatment: Yes Patient verbally consented to billing insurance company: Yes Patient informed of any privacy concerns related to visit: Yes Minutes spent on Phone/Video with Pt.: 60 Assessment & Plan Assessment & Plan (1) Morbid obesity: Code(s): E66.01 - Morbid (severe) obesity due to excess calories Category: Medical Plan: 1.? Plan for lap sleeve gastrectomy. If diaphragmatic or ventral hernias are present at time of surgery, these will be repaired laparoscopically as well. I emphasized the importance of close follow-up, adherence to instructions and good communication. The surgery does not replace the need to change your lifestlyle which is the cause of the obesity problem. The surgery provides the motivation to try again to change your lifestyle, it reduces the appetite and make the transition to a better lifestyle easier and doubles the amount of weight you would lose compared to doing the lifestyle change without the surgery. You will need to be on a liquid diet with protein shakes for 2 weeks before surgery to maximize weight loss and boost your nutritional status to recover better from surgery and also for the first two weeks after surgery to let the stomach heal before we introduce other foods. After the first 2 weeks we will introduce protein bars and soft foods like scrambled eggs, cottage cheese and yogurt and after the 6th week will introduce meat, fish and cooked vegetables in small amounts. Over time you should be able to eat everything in small amounts. Side effects like nausea, vomiting, heartburn or abdominal pain are not common in the practice unless you are not following in the practice. This operation requires lifetime commitment to following in our practice and communication with me. You will much less weight and experience side effects if you don?t communicate or not following in the practice. Complications are rare and in our practice is about 1/10 of the national average. However, you can develop bleeding that may require transfusion (hasn?t happened for year in the practice), you may from complications (we did not have any deaths in the practice) and infections. Infections are usually a result of breakdown in communication or not understanding or following directions correctly. They are difficult to treat, they can happen during the first 6 weeks, they may require to be in the hospital for weeks or even months, not being able to eat by mouth and you may have drains and surgeries to try and correct the issue. Other risks and complications include possible conversion to an open procedure, leaks, small bowel obstruction, blood clots, cardiac, or pulmonary complications, as superintendent terminal complications such as ulcers, insufficient weight loss and vitamin deficiencies. 2. Nutritional counseling. Start with one premade PREMIER protein (buy at [employer] or [employer]) shake (8oz of Premier and NOT the whole bottle) at 7am-9am, one protein bar (Fit Crunch protein bar, buy at [employer], or [employer]) at 10am-12pm, another premade PREMIER protein shake (8oz of Premier and NOT the whole bottle) at 1pm-3pm, another [employer] protein bar,? dinner at 7pm (10 forks of protein and 10 forks of salad/vegetables) and one more [employer] protein bar at 9-11pm. So you do 2 protein shakes, 3 protein bars and one meal per day. Meal to include lean meat (beef, fish, pork, turkey, chicken), or vietnamese yogurt, or egg whites, or beans with a salad with olive oil and fruits (berries, pears, apples, kiwi). Avoid salt, breads, potatoes, rice, pasta, desserts. 3. Each shake would be drunk slowly, like coffee in a period of 2 hours. 4. Cut each bar in 4 pieces and eat each piece in 30min ?to make each bar last 2 hours. 5. I emphasized the importance of measuring accurately the food portion and measure it when serving the food in plate 6. The meal portions include 10 full-size forks of meat and 10 full-size forks of salad. You always eat the meat portion but you can replace up to 5 forks for salad/vegetables with rice, potatoes or pasta, or a fruit ?if you like. The less you do it the better weight loss will be. 7. One full-size fork is what it can be scooped on the fork without falling aside and not what can be bit with the fork. Use regular forks like those you find in a typical restaurant. 8.? Please buy the body composition scale we discussed and send me weight measurements as soon as possible and then once a week. Always include your diet and exercise plan. ] 9. Start Phentermine daily at 10am. We discussed the potential side-effects of the Phentermine such as irritability, dry mouth, difficulty sleeping, dizziness, numbness in feet and high blood pressure. I asked her to get a blood pressure monitor and measure the blood pressure daily in the morning and evening. She needs to send the blood pressure readings daily and to call the office for blood pressure over 140/80 and she understands that. 10. The best choice would be to purchase a stationary bike, elliptical or treadmill at home that can track calories. If you get one, please 10. Alternatively start stationary bike at a resistance level of 4.0 Increase level by 1.0 every 3 min to a max level of 10.0. Stay at this level for 3 min and then return to level 4.0 and repeat same steps until 300 calories are burned. Goal is to burn 2000 calories per week on exercise 11.?It is important of avoiding and for at least 18 months postoperatively and has been discussed at the infosession. 12. Goal is to lose at least 1.5-2lbs per week 13. Goal to lose 10% of your weight before surgery, which is about 30lbs. Ultimate weight goal: 277lbs before surgery 14. Please follow the diet plan exactly without any change. If you don't like something about the plan or you feel hungry you need to communicate with me so I can help you revise the plan. You should not change the plan yourself 15. To be scheduled for EGD to assess the stomach's anatomy. The possibility of biopsies was discussed. Patient needs to avoid use of NSAIDs and aspirin for 1 week prior to EGD. You must be on liquids only the day before your endoscopy. Risks of perforation and bleeding was discussed with the patient. This will be an outpatient procedure with IV sedation. Orders: Orders Insulin Today E66.01 - Morbid (severe) obesity due to excess calories Hemoglobin A1c Today E66.01 - Morbid (severe) obesity due to excess calories H Pylori Breath Test Today E66.01 - Morbid (severe) obesity due to excess calories Lipid Panel Today E66.01 - Morbid (severe) obesity due to excess calories IRON PROFILE Today E66.01 - Morbid (severe) obesity due to excess calories Vitamin B12 and Folate Today E66.01 - Morbid (severe) obesity due to excess calories Zinc Today E66.01 - Morbid (severe) obesity due to excess calories Vitamin B1 Today E66.01 - Morbid (severe) obesity due to excess calories Vitamin A Today E66.01 - Morbid (severe) obesity due to excess calories US abdomen comp w elastography Today E66.01 - Morbid (severe) obesity due to excess calories ECG 12 lead EKG Today E66.01 - Morbid (severe) obesity due to excess calories Complete Blood Count Auto Diff Today E66.01 - Morbid (severe) obesity due to excess calories Comprehensive Met. Panel Today E66.01 - Morbid (severe) obesity due to excess calories C Reactive Protein Today E66.01 - Morbid (severe) obesity due to excess calories TSH reflex Free T4 Today E66.01 - Morbid (severe) obesity due to excess calories Ferritin Today E66.01 - Morbid (severe) obesity due to excess calories Vitamin D 25-OH Total Today E66.01 - Morbid (severe) obesity due to excess calories XR chest 2V Today E66.01 - Morbid (severe) obesity due to excess calories FL upper GI w air Today E66.01 - Morbid (severe) obesity due to excess calories Referrals Behavioral Health Referral E66.01 - Morbid (severe) obesity due to excess calories Nutrition/Dietitian Referral E66.01 - Morbid (severe) obesity due to excess calories Medications: New phentermine must administer 30 minutes before or 1-2 hours after breakfast 37.5 mg PO DAILY 30 tabs 0RF E66.01 - Morbid (severe) obesity due to excess calories
[2025-06-12 09:25] VITALS: BMI 54.4
== END 2025-06-12 10:11 | disposition home or self-care (01) ==
LOC: HO.HBS 08:10
PROVIDERS: Visit Provider Surgery
DX: E66.01 Morbid (severe) obesity due to excess calories (principal); Z68.43 Body mass index [BMI] 50.0-59.9, adult
CPT/HCPCS: 99205